=== PATIENT | female | born 1980 | race Caucasian/White ===

== ENCOUNTER 2023-01-21 06:22 | Emergency (ER) | payer OTHER, SELFPAY ==
[2023-01-21 06:32] VITALS: BP 127/88; PULSE 78; RESP 18; TEMP 36.7; O2SAT 96; BMI 33.9
--- NOTE | 2023-01-21 07:07 | ED.GENADULT ---
HPI - General Adult General Chief complaint: Abdominal Pain Stated complaint: abdominal pain, bloody stool Time Seen by Provider: 01/21/23 06:23 Source: patient Mode of arrival: ambulatory Limitations: no limitations History of Present Illness HPI narrative: 42-year-old female with no anticoagulant use presents the emergency department with rectal bleeding. She reports that this started overnight. It is bright red, slow trickle in nature, no clots. It is accompanied by some abdominal cramping and loose stools. She had been constipated for a couple of days and did take a stool softener yesterday. Initially the blood was just with wiping but now she notice is that it is mixed in with the diarrhea and is happening with each bowel movement which is a few times over night. As stated there is no severe bleeding, there is no continuous leakage of blood. There was no injury, trauma, tenderness to the rectum. She has some mild left lower quadrant discomfort but no severe pain. She has not taken any medication to help with her symptoms. She has had no recent changes to her medications, she last used her migraine medication which is a triptan 48 hours ago, uncomplicated. She did take some ibuprofen a couple of days ago but no other aspirin or other anticoagulants. Her last colonoscopy was 1 year ago and she had some sessile serrated polyps by her description. She does have a family history of ulcerative colitis. There has been no fever, no unexpected weight loss, no diffuse abdominal pain, vomiting or other worrisome symptoms. Past medical history notable for migraines, depression. Home meds are fluoxetine, amitriptyline, p.r.n. rizatriptan and control. She is a nonsmoker. Family history noted above. ROS notable for the GI symptoms as above only, otherwise denies times 12 systems. Related Data Home Medications Medication Instructions Recorded Confirmed amitriptyline 10 mg tablet 10 mg PO QPM 01/21/23 01/21/23 cyclobenzaprine 5 mg tablet 5 mg PO 3XD PRN muscle spasm 01/21/23 01/21/23 fluoxetine 20 mg capsule 20 mg PO DAILY 01/21/23 01/21/23 norgestimate 0.25 mg-ethinyl 1 tab PO DAILY 01/21/23 01/21/23 estradiol 35 mcg tablet (Estarylla) Allergies Allergy/AdvReac Type Severity Reaction Status Date / Time No Known Drug Allergies Allergy Verified 01/21/23 06:36 [facility] Medical History Anxiety ?F41.9 - Anxiety disorder, unspecified (ICD-10) Migraine ?G43.909 - Migraine, unspecified, not intractable, without status migrainosus (ICD-10) Surgical History No significant past surgical history Social History Smoking Status: Never smoker Second hand tobacco smoke exposure: No How often do you have a drink containing alcohol: never How often do you have six or more drinks on one occasion: Never AUDIT-C Alcohol total score: 0 Non-prescribed substance use: denies use Exam Const: Vital Signs, click to edit/add: Vital Signs - 24 hr 01/21/23 06:32 01/21/23 07:14 Temperature 98.1 F 98.2 F Pulse Rate [Right Pulse Oximeter] 78 72 Respiratory Rate 18 18 Blood Pressure [Ri ght Upper Arm] 127/88 123/84 Pulse Oximetry 96 96 Oxygen Delivery Me thod Room Air Room Air Documenting provider has reviewed patient's vital signs: yes Common normals: no apparent distress General appearance: cooperative, comfortable and well kempt Other: Appears well nourished, well hydrated, nontoxic. HENMT: Common normals: normocephalic Head and scalp: normocephalic Mouth: oral and palatal mucosa normal Throat: posterior oropharynx normal Eye: Common normals: conjunctivae normal General eye: normal appearance of both eyes Conjunctiva: conjunctiva(e) normal Resp: Common normals: normal respiratory effort, no use of accessory muscles and clear to auscultation bilaterally Effort & inspection: able to speak in complete sentences Auscultation: clear to auscultation bilaterally Cardio: Common normals: regular rate, regular rhythm, S1 normal heart sound, S2 normal heart sound and no murmurs Rate: regular rate Rhythm: regular rhythm Heart sounds: S1 normal and S2 normal GI: Common normals: Normal to inspection, nondistended, normoactive bowel sounds present, soft to palpation, no hepatosplenomegaly and no masses Palpation: soft and no hepatosplenomegaly Other: Mild tenderness to the left lower quadrant, certainly no rebound tenderness or guarding. : Other: Rectal exam showing normal external rectum, no obvious hemorrhoids. Anoscope exam revealing a tiny scant amount of dark red blood mixed with loose stool at the very top part of the rectal vault, IP hemoccult sample is taken and is expectedly positive. There is no signs of fissure, polyp or trauma to the rectum. Extremity: Common normals: normal to inspection and no pedal edema Neuro: Motor exam: no movement abnormalities noted Psych: Appearance: well kempt Attitude: engaged Activity/motor behavior: appropriate eye contact Insight: insight good Judgement: judgment good Skin: Common normals: no rashes or lesions noted General skin exam: no rashes or lesions noted Course Course Hospital Course: Differential diagnosis: Most likely this is a diverticular bleed based on presentation. Cannot exclude infectious colitis, inflammatory colitis, polyp, tumor, av malformation or other etiology. Rate of the bleeding in overall presentation suggests venous etiology. There are no signs of acute pathological bleeding at this time. I recommended basic labs to check hemoglobin, platelet count, liver enzymes, inflammatory markers. If she is able to provide an appropriate bloody diarrhea sample, we would test this for infectious pathogens, ova and parasite. Counseled that CT scans rarely are helpful in these instances. There are no indications for an emergent colonoscopy. She will need a follow-up colonoscopy in 4-6 weeks. This can be arranged outpatient. She should expect the bleeding to last 24-48 hours. Recommended gentle diet, lots of fluids and rest today. Alarm symptoms that would warrant ED presentation reviewed with patient as indications to come back to the ED. she verbalizes understanding and agreement. Awaiting labs but expecting discharge to home if there are no signs of persistent bleeding. Reevaluation(s) Time of Reevaluation #1: 07:58 Reevaluation #1: Reassessed patient. Feeling stable. Did try to have a bowel movement and there is only a scant amount of dark red blood again but no significant stool sample otherwise. She has not had any return of the cramping and diarrhea while she has been here. No fevers, tachycardia hypotension, worsening of any kind. I still strongly suspect that this is a diverticular bleed. Discussed my rationale for not performing imaging. Stressed the importance for follow-up colonoscopy in a few weeks Ancef parameters for when to worry in the setting of this bleeding. All questions were answered, written instructions provided. She verbalizes understanding and agreement. Vital Signs Vital signs: Initial Vital Signs Temperature 98.1 F 01/21/23 06:32 Temperature Source Temporal Artery Scan 01/21/23 06:32 Pulse Rate 78 01/21/23 06:32 Respiratory Rate 18 01/21/23 06:32 Blood Pressure 127/88 01/21/23 06:32 Blood Pressure Mean 101 01/21/23 06:32 Blood Pressure Position Sitting 01/21/23 06:32 Pulse Oximetry 96 01/21/23 06:32 Oxygen Delivery Method Room Air 01/21/23 06:32 Vital Signs Temperature 98.1 F 01/21/23 06:32 Pulse Rate 78 01/21/23 06:32 Respiratory Rate 18 01/21/23 06:32 Blood Pressure 127/88 01/21/23 06:32 Pulse Oximetry 96 01/21/23 06:32 Oxygen Delivery Method Room Air 01/21/23 06:32 Temperature 98.2 F 01/21/23 07:14 Pulse Rate 72 01/21/23 07:14 Respiratory Rate 18 01/21/23 07:14 Blood Pressure 123/84 01/21/23 07:14 Pulse Oximetry 96 01/21/23 07:14 Oxygen Delivery Method Room Air 01/21/23 07:14 Medical Decision Making Lab Data Lab results reviewed: Yes I reviewed the patient's lab results Lab results narrative: Mild elevation of CRP, no significant leukocytosis. Normal liver enzymes, electrolytes and kidney function. Overall fairly reassuring. Labs: Lab Results 01/21/23 Range/Units 07:20 WBC 10.27 (4.50-11.00) K/uL RBC 4.73 (4.00-5.20) m/uL Hgb 14.4 (12.0-16.0) gm/dL Hct 42.4 (33.0-51.0) % MCV 90 (80-100) fL MCH 30 (26-34) pg MCHC 34 (32-36) gm/dL RDW Coeff of Carmina 12.6 (11.5-15.5) % Plt Count 300 (140-440) K/uL Neut % (Auto) 76.3 H (42.0-72.0) % Lymph % (Auto) 16.3 L (20-44) % Johnson % (Auto) 5.6 (0.0-11.0) % Eos % (Auto) 1.5 (0.0-7.0) % Baso % (Auto) 0.3 (0.0-3.0) % Neut # (Auto) 7.80 H (1.7-7.0) K/uL Lymph # (Auto) 1.70 (0.90-2.90) K/uL Johnson # (Auto) 0.60 (0.00-0.90) K/UL Eos # (Auto) 0.15 (0.00-0.50) K/uL Baso # (Auto) 0.03 (0.00-0.30) K/uL Abs Immat Gran (auto) 0.00 (0.00-0.30) K/uL Imm/Tot Granulo (auto) 0.0 % INR 0.97 (0.91-1.10) Sodium 139 (135-149) mmol/L Potassium 4.0 (3.6-5.1) mmol/L Chloride 106 (96-114) mmol/L Carbon Dioxide 27 (20-32) mmol/L Anion Gap 6 L (7-15) mEq/L BUN 10 (5-24) mg/dL Creatinine 0.7 (0.5-1.5) mg/dL Estimated Creat Clear 99.01 Estimated GFR 111 ml/min Glucose 100 (60-115) mg/dL Calcium 8.6 (8.4-10.6) mg/dL Total Bilirubin 0.9 (0.1-1.5) mg/dL AST 28 (12-35) U/L ALT 24 (4-35) U/L Alkaline Phosphatase 70 (40-150) U/L C-Reactive Protein 2.8 H (0.5-1.0) mg/dL Total Protein 7.2 (6.0-8.3) g/dL Albumin 4.0 (3.3-5.0) g/dL Discharge Plan Discharge Clinical Impression: Painless rectal bleeding Patient Disposition: Home w/ Parent or Adult Condition: Stable Instructions: Gastrointestinal Bleeding (ED) Additional Instructions: Based on her symptoms and presentation, the reason for her bleeding is most likely a diverticular bleed. This is similar to a hemorrhoid but in the lower part of the colon, often where there is an area of a weak spot in the colon wall known as diverticulosis. This is different than diverticulitis which is an infection. There are no features of infection based on her presentation, exam or blood work today. Most of the time, the bleeding will stop within 24-48 hours. It tends to be dark red, often mixed with the stool. Rarely there can be small blood clots. Persistent strong bleeding and or large blood clots would warrant return to the emergency department. Try to avoid aspirin and NSAIDs like ibuprofen for the next couple of days but it is okay to take Tylenol if needed. Drink lots of fluids and rest. It was light, bland diet for the next [address] scan does not typically show the sources for GI bleeding. This is why do not recommend performing 1 today. I do recommend that you schedule a follow-up colonoscopy in 4-6 weeks to make sure that there is no other reason for the bleeding such as a polyp. Your primary care doctor can make a referral for this. I would also like for you to see her primary care doctor in 2 days to recheck your hemoglobin and ensure that the bleeding is not serious. Activity Level: Activity as Tolerated Discharge Diet: Regular Prescriptions: No Action norgestimate-ethinyl estradiol [Estarylla] 0.25-35 mg-mcg tablet 1 tab PO DAILY amitriptyline 10 mg tablet 10 mg PO QPM fluoxetine 20 mg capsule 20 mg PO DAILY cyclobenzaprine 5 mg tablet 5 mg PO 3XD PRN (Reason: muscle spasm) Stand Alone Forms: [employer] Info Instructions
[2023-01-21 07:14] VITALS: BP 123/84; PULSE 72; RESP 18; TEMP 36.8; O2SAT 96
[2023-01-21 07:27] LABS: Basophils Absolute Auto 0.03 K/uL (0.00-0.30); Basophils Percent Auto 0.3 % (0.0-3.0); Eosinophils Absolute Auto 0.15 K/uL (0.00-0.50); Eosinophils Percent Auto 1.5 % (0.0-7.0); Hematocrit 42.4 % (33.0-51.0); Hemoglobin* 14.4 gm/dL (12.0-16.0); Lymphocytes Percent Auto 16.3 % (20-44); Mean Corpuscular HGB Conc 34 gm/dL (32-36); Mean Corpuscular Hemoglobin 30 pg (26-34); Mean Corpuscular Volume 90 fL (80-100); Monocytes Percent Auto 5.6 % (0.0-11.0); Neutrophils Percent Auto 76.3 % (42.0-72.0); Platelet Count* 300 K/uL (140-440); RDW Coefficient of Variation % 12.6 % (11.5-15.5); Red Blood Count 4.73 m/uL (4.00-5.20); White Blood Count* 10.27 K/uL (4.50-11.00)
[2023-01-21 07:31] LABS: Slide Review Reflex No
--- NOTE | 2023-01-21 07:39 | ED.NURSE ---
was able to provide minimal amount of stool for occult blood and o&p. this was noted to have mucus and blood. specimen was not large enough for culture. is steady on feet.
[2023-01-21 07:41] LABS: Chloride* 106 mmol/L (96-114); Sodium* 139 mmol/L (135-149)
[2023-01-21 07:42] LABS: INR 0.97 (0.91-1.10); Prothrombin Time 13.5 Seconds
[2023-01-21 07:43] LABS: Creatinine* 0.7 mg/dL (0.5-1.5); Est. Creatinine Clearance* 99.01; Estimated Glomerular Filt Rate 111 ml/min
[2023-01-21 07:44] LABS: Alanine Aminotransferase* 24 U/L (4-35); Alkaline Phosphatase* 70 U/L (40-150); Anion Gap 6 mEq/L (7-15); Aspartate Amino Transferase* 28 U/L (12-35); Bilirubin Total* 0.9 mg/dL (0.1-1.5); Blood Urea Nitrogen* 10 mg/dL (5-24); Carbon Dioxide* 27 mmol/L (20-32); Total Protein* 7.2 g/dL (6.0-8.3)
[2023-01-21 07:45] LABS: Calcium* 8.6 mg/dL (8.4-10.6); Glucose* 100 mg/dL (60-115)
[2023-01-21 07:47] LABS: C Reactive Protein* 2.8 mg/dL (0.5-1.0)
[2023-01-21 08:06] LABS: Fecal Occult Blood* Positive (Negative)
[2023-01-27 00:14] LABS: Ova and Parasite, Fecal Negative (Negative)
== END 2023-01-21 08:10 | disposition home or self-care (01) ==
PROVIDERS: Emergency Provider Family Medicine
DX: K62.5 Hemorrhage of anus and rectum (principal)
CPT/HCPCS: 36415; 80053; 82270; 85025; 85610; 86140; 87045; 87046; 87177; 87209; 87427; 99283; 99284

== ENCOUNTER 2024-07-09 14:30 | Emergency (ER) | payer BC, SELFPAY ==
[2024-07-09 14:33] VITALS: BP 121/79; PULSE 98; RESP 16; TEMP 36.6; O2SAT 97; BMI 30.5
--- OUTSIDE RECORDS SUMMARY | 2024-07-09 14:33 | XMS_ITS | Clinical Summary ---
Author Organization [facility] Address [place], [place] [address] Care Team Providers Care Inspector Motor Vehicles Name Role Phone Jacquie Rankin Primary Care Provider [phone] Allergies No known active allergies Medications VIT #[id number] ORAL One tablet once a day 01/26/20 09 Active HYDROCORTISONE ACETATE 25 MG RECTAL SUPPOSITORY Two times a day Active ACETAMINOPHEN 325 MG TAB Take 1-2 325mg tablets by mouth every 4 hours for mild pain as needed. 1 0 02/02/20 09 Active IBUPROFEN 200 MG CAP Take 1-3 200mg tablets by mouth every 6 hours for uterine cramping as needed 1 0 02/02/20 09 Active [id number]-BO-LGF-FE -FA TAB Take 1 tablet by mouth each day 1 0 02/02/20 09 Active acetaminophen-code ine, 300-30 mg, (TYLENOL #3) 300-30 mg tablet take 1 tablet by oral route every 6 hours as needed 16 0 05/03/20 09 Active methylPREDNISolone (MEDROL DOSEPAK) 4 mg tablet Take by mouth as instructed per packaging. 21 tablet 0 01/06/20 13 Active cyclobenzaprine (FLEXERIL) 10 mg tablet Take 1 tablet by mouth 3 times daily. 15 tablet 0 01/06/20 13 Active oxyCODONE-acetamin ophen, 5-325 mg, (PERCOCET) per tablet Take 1 tablet by mouth every 4 hours if needed for Pain. Max acetaminophen dose: 4000mg in 24 hrs. 15 tablet 0 01/06/20 13 Active albuterol HFA 90 mcg/actuation inhalerIndications :Influenza due to unidentified influenza virus with other respiratory manifestations Inhale 1-2 Puffs by mouth every 4 hours if needed for wheezing 18 g 1 9 9:53 AM INDUSTRIAL TECHNICIAN 07/24/19 19 Active Active Problems Problem Noted Date Diagnosed Date Normal delivery 01/31/2009 Resolved Problems Problem Noted Date Diagnosed Date Resolved Date Supervision of other normal 01/31/2009 01/31/2009 Social History Tobacco Use Types Packs/Day Years Used Date Smoking Tobacco: Never Assessed Alcohol Use Standard Drinks/Week Comments No 0 (1 standard drink = 0.6 oz pur e alcohol) Comments No Sex and Gender Information Value Date Recorded Sex Assigned at Not on file Legal Sex Female 7:33 AM INDUSTRIAL TECHNICIAN Gender Identity Not on file Sexual Orientation Not on file Obstetrics History Para Term AB IAB SAB Ectopic Multiple Livin g Live Births 2 1 1 0 0 0 0 0 0 1 Date Outcome GA Total Labor Labor/2nd/3rd Weight Sex Type Anes PTL Judy A1 A5 Name Clin Term Comments:System Genera valentín. Please review and update details. Last Filed Vital Signs Vital Sign Reading Time Taken Comments Blood Pressure 148/88 03/01/2016 4:09 PM CDT Pulse 78 03/01/2016 4:09 PM CDT Temperature 36.8 C (98.2 F) 03/01/2016 4:09 PM CDT Respiratory Rate 18 03/01/2016 4:09 PM CDT Oxygen Saturation 99% 03/01/2016 4:09 PM CDT Inhaled Oxygen Concentration - - Weight 86.2 kg (190 lb) 03/01/2016 4:09 PM CDT Height 170.2 cm (5' 7) 03/01/2016 4:09 PM CDT Body Mass Index 29.76 03/01/2016 4:09 PM CDT Plan of Treatment Health Maintenance Due Date Last Done Comments Tdap 02/21/1992 Depression screening for age 12+ 1993 HIV for age 15-65 02/21/1996 BMI (ht and wt on same day) for age 18+ 1999 Hepatitis C screening for age 18-79 1999 Tetanus booster 2001 Pap test for age 21-65 2002 COVID-19 vaccine series ( season) 2024 04/02/2022, 04/06/2021, 08/15/2020, Additional history exists Influenza for age 9-49 01/24/2024 Pneumococcal series for age 6-49 Aged Out No longer eligible based on patient's age to complete this topic Advance Directives * Full Code (Latest Code Status on File) Date Activated Date Inactivated Comments 01/31/2009 3:20 AM 02/01/2009 1:41 PM * Full Code Date Activated Date Inactivated Comments 01/30/2009 8:03 PM 01/31/2009 3:20 AM * Full Code Date Activated Date Inactivated Comments 01/26/2009 8:25 PM 01/26/2009 11:28 PM Care Teams Inspector Motor Vehicles Relationship Specialty Start Date End Date Jacquie Rankin DO [address] [place] [address] PCP - General Family Practice 12/03/21
--- OUTSIDE RECORDS SUMMARY | 2024-07-09 14:33 | XMS_ITS | Encounter Summary ---
Author Organization [facility] Address [address] [place] [address] Care Team Providers Care Electrolytic De Scaler Name Role Phone Jacquie Rankin DO Primary Care Provider [phone] Encounter Details Date Type Department Care Team (Late st Contact Info) Description 05/26/2024 12:20 PM SPEECH PROFESSOR Telemedicine Virtual Urgent Care [address] [place] [address] Faviola Muñiz, BREAKFAST ATTENDANT, SR. SOCIAL MEDIA & MOBILE MANAGER [address] [place], [place] [id number] Acute midline low back pain without sciatica (Primary Dx) Social History Tobacco Use Types Packs/Day Years Used Date Smoking Tobacco: Former Cigarettes 0.3 4 1 07/02/2001 - 05/01/2006 Smokeless Tobacco: Never Comments:Quit smoking: Alcohol Use Standard Drinks/Week Comments Not Currently 0 (1 standard drink = 0.6 oz pur e alcohol) occasionally PHQ-2 Answer Date Recorded PHQ-2 Score 3 04/12/2024 Comments No Sex and Gender Information Value Date Recorded Sex Assigned at Not on file Legal Sex Female 11:55 PM CDT Gender Identity Not on file Sexual Orientation Not on file 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 Push fluids when you take this medicine and do not operate heavy machinery until you know how you feel when taking it Use heat, soaking in a tub with Epsom salts, gentle stretching as indicated in the teaching handouts, and other home cares as we discussed to help alleviate symptoms If you are not continually improving over the next several days, have any new or worsening symptoms, or you are not well in another week's time, please follow-up with either your primary care provider or with [facility] through the same-day clinic or urgent care as we discussed. Call 911/go to the ER if you develop a high fever that will not come down, severe pain, weakness inyour extremities, numbness or tingling in your perianal area, incontinence of stool or urine, or other symptoms of significant concern to you or as indicated in teaching handouts This note was created using a AI assisted electronic dictation device. There may be unintended grammatical, spelling, or word errors because of this. CH PROFESSOR CH PROFESSOR * Attachments The following attachments cannot be sent through Care Everywhere. * Low Back Pain: General Info (Frisian) * EXERCISES FOR BACK PAIN (LATVIAN) documented in this encounter Progress Notes * Faviola Muñiz APRN, CNP - 05/26/2024 12:20 PM CST Rooming Notes: This visit was completed as a virtual video visit using a synchronous, two-way, audio-video technology platform. All issues as documented above were discussed and addressed. Due to the nature of an audio-video modality, the only components of a physical exam that could be done are the elements supported by direct visual observation. If it was felt that the patient should be evaluated in clinic liliana an emergency room setting, then this was discussed with the patient. Patient identification was verified at the start of the visit, including the patient's name, date of , and physical location in case of emergency. Patient was in her work. Provider was in home office. Patient verbally consented to visit and demonstrated an understanding of the limitations of this virtual visit. Subjective: Very pleasant 44-year-old female presents with sudden onset of midline low back pain and tenderness. She was laying in bed and felt a little bit of low back discomfort and then twisted out of bed andhad significant midline low back pain from that time forward. She does sleep on a memory foam mattress. No history of injuries in the low back or pain like this before. She is not having any pain or numbness or tingling in her buttocks or lower extremities/legs. She took some ibuprofen and use heatand it seems to be helping. Movement seems to be helping. She is just very stiff and sore and wondering what she can do about this. Denies fever, chills, body aches or pains, cough, shortness of breath, chest pain, nausea, vomiting, diarrhea, constipation, changes in p.o. intake or urinary output, flank pain or tenderness, abdominal pain or tenderness, and any and all other complaints. Objective: Vitals Signs: There were no vitals taken for this visit. Awake and alert Nontoxic appearance Pleasant affect Skin color appropriate for race Low back: No bruising, no deformity appreciated or visualized, no paraspinal muscle spasms appreciated visually, patient states she is tender across the midline lumbar area and the pain feels deep inside there Negative straight leg raise (modified sitting) bilaterally Moves all extremities within normal limits MDM/Assessment: Patient with acute midline low back pain without sciatica. She had minimal response from ibuprofen.Will place her on a Medrol Dosepak and provide with some cyclobenzaprine for bedtime and then discussed symptom management at home and normal course of illness. We discussed follow-ups as needed. We discussed red flag/emergency symptoms. I answered all questions and concerns. Patient verbalized understanding of plan and discharge instructions and was agreeable to both. They had no further questions, comments, or concerns by the end of their visit. Visit Diagnoses: 1. Acute midline low back pain without sciatica Plan: Follow teaching handouts Take medrol dosepack as directed and inflammation, make sure you have something in your stomach when you take this You may use [id number] acetaminophen as directed on the bottles/packages for any pain unrelieved by Medrol Dosepak Use cyclobenzaprine as needed for pain that keeps you awake, or pain unrelieved by Medrol and acetaminophen. Push fluids when you take this medicine and do not operate heavy machinery until you know how you feel when taking it Use heat, soaking in a tub with Epsom salts, gentle stretching as indicated in the teaching handouts, and other home cares as we discussed to help alleviate symptoms If you are not continually improving over the next several days, have any new or worsening symptoms, or you are not well in another week's time, please follow-up with either your primary care provider or with [facility] through the same-day clinic or urgent care as we discussed. Call 911/go to the ER if you develop a high fever that will not come down, severe pain, weakness inyour extremities, numbness or tingling in your perianal area, incontinence of stool or urine, or other symptoms of significant concern to you or as indicated in teaching handouts This note was created using a AI assisted electronic dictation device. There may be unintended grammatical, spelling, or word errors because of this. CH PROFESSOR documented in this encounter Plan of Treatment Upcoming Encounters Date Type Department Care Team (Late st Contact Info) Description 07/20/2024 2:15 PM SPEECH PROFESSOR [facility]ointment [facility] [address] [facility] [address] [id number] Shane Pedro Jr., MD [address] [place], [place] [id number] 09/14/2024 11:30 AM CDT Telemedicine [facility] [address] [facility] [address] [place], [place] [id number] Viktoriya Aviles PA-C [address] [place], [place] [phone] 09/22/2024 2:30 PM CDT Appointment [facility] [address] [place] [id number] Cari Duarte MD [address] [facility] [address] [place] [phone] 03/29/2025 3:30 PM SPEECH PROFESSOR Appointment [facility] [address] [place] [id number] Cari Duarte MD [address] [facility] [address] [place] [phone] documented as of this encounter Visit Diagnoses Diagnosis Acute midline low back pain without sciatica- Primary documented in this encounter Care Teams Electrolytic De Scaler Relationship Specialty Start Date End Date Jacquie Rankin DO [address] [place] [address] PCP - General 04/18/14 documented as of this encounter
--- OUTSIDE RECORDS SUMMARY | 2024-07-09 14:33 | XMS_ITS | Encounter Summary ---
Author Organization [facility] Address [address] [place] [address] Care Team Providers Care Etcher Hand Name Role Phone Jacquie Rankin DO Primary Care Provider [phone] Reason for Visit * Reason Comments Prior Authorization Request Botox questi ons Encounter Details Date Type Department Care Team (Late st Contact Info) Description 06/01/2024 Telephone [facility] Neurology [address] [place], [place] [id number] Cari Duarte MD [address] [facility] [address] [place] [address] Prior Authorization Request (Botox questions) Social History Tobacco Use Types Packs/Day Years [...] on file documented as of this encounter Nursing Notes * Rosa Oneill - 06/01/2024 2:08 PM CST Spoke with patient to obtain information so authorization request can be submitted to her insurancefor continuation of Botox. Patient denies having any disorders that may contribute to swallowing, breathing or respiratory difficulty. Patient denies having any hypersensitivity to Botulinum toxin products. Patient denies any active infection at the proposed injection sites. Patient confirms she does continue to utilize other migraine prevention strategies. Patient confirms that Botox does provide an improvement in her function. Patient confirms that there is a significant decrease in the number, frequency, severity or duration of her headaches with Botox. Patient does received Botox injection through her business proposal rep for excessive sweating in her armpits (but not on concurrent treatment with another Botulinum toxin product for treatment of her headaches). Patient confirms she is tolerating Botox with minimal to no side effects. T DOCTOR documented in this encounter Plan of Treatment Upcoming Encounters Date Type Department Care Team (Late st Contact Info) Description 07/20/2024 2:15 PM HEART DOCTOR Appointment [facility] [address] [facility] [address] [place] [address] Shane Pedro Jr., MD [address] [place], [place] [address] 09/14/2024 11:30 AM CDT [facility] [address] [facility] [address] [place], [place] [address] Viktoriya Aviles PA-C [address] [place], [place] [address] 09/22/2024 2:30 PM CDT Appointment [facility] [address] Neurology [address] [facility] [place], [place] [address] Cari Duarte MD [address] [facility] [address] [place] [phone] 03/29/2025 3:30 PM HEART DOCTOR Appointment [facility] [address] Neurology [address] [place], [place] [address] Cari Duarte MD [address] [facility] [address] [place] [address] documented as of this encounter Visit Diagnoses Not on filedocumented in this encounter Care Teams Etcher Hand Relationship Specialty Start Date End Date Jacquie Rankin DO [address] [place] [address] PCP - General 04/18/14 documented as of this encounter
--- OUTSIDE RECORDS SUMMARY | 2024-07-09 14:33 | XMS_ITS | Encounter Summary ---
Author Organization [facility] Address [address] [place] [address] Care Team Providers Care Brand Ambassador Promotional Model Name Role Phone Jacquie Rankin DO Primary Care Provider [phone] Reason for Visit * Reason Comments Prior Authorization For Medication ONABO TULINUMTOXINA (BOTOX) 100 UNITS INJECTION Encounter Details Date Type Department Care Team (Late st Contact Info) Description 06/08/2024 Telephone [facility] [address] [facility] [address] [place] [address] Shane Pedro Jr., MD [address] [place] [address] Prior Authorization For Medication (ONABOTULINUMTOXINA (BOTOX) 100 UNITS INJECTION ) Social History Tobacco Use Types Packs/Day Years [...] as of this encounter Nursing Notes * Jodi Fitzgerald RN - 06/14/2024 8:58 AM CST Approval sent to scan doc. NIC PREPARATION ANALYST * Jacquie Burnham LPN - 06/13/2024 9:33 AM CST Images from the original note were not included. Received fax from [employer] [place] with coverage determination for medical Botox prior authorization. Screenshot of letter below. 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 Coverage dates: 06/09/2024 - 12/06/2024 Case tracking # [id number] Case authorization # [id number] Provider NPI # [id number] BS ID # [id number] Called [facility] Utilization Management department ph. and spoke to outside dealer sales representative [facility] patient benefits for medical Botox injection are as follows: Coverage for Botox: Patient is responsible for a $20 co-pay until individual or family srx-ca-lzgiup max is met. Deductible does not apply. Once met, coverage is 100% and co-pay no longer applies. Out of pocket max: Individual ($2500) Family ($90808) Per outside dealer sales representative, clinic MAY buy and bill/supply medication in-house. Clinic is NOT required to use a contracted specialty pharmacy. Call reference #: [id number] Next steps for care team: Please contact patient and inform coverage has been approved. Next appt: 07/20/2024 Order Botox (clinic supplied) prior to appointment. Copy of approval letter was routed to care team [employer] folder. Please print and forward to Scan Doc. Jacquie Davison LPN 06/13/24 10:26 am NIC PREPARATION ANALYST * Jacquie Burnham LPN - 06/09/2024 4:28 PM CST Sorry, I'm not sure why that was routed to you first. I will route encounter back to care team oncecoverage determination letter is received and benefits and coverage has been verified early next week. Thank you! Jacquie Davison LPN 06/09/24 4:30 PM NIC PREPARATION ANALYST * Guerda Mcdaniel MA - 06/09/2024 2:31 PM CST Reason for call: Prior authorization Specialty Pharmacy: [facility] Name & Phone Number of Caller: [facility] [phone] Callback Required? Yes Was the patient & pharmacy notified of the approval or denial? NA Case #: [id number] How long is PA approved for? 06/09/24 Other information: Patient has been approved for botox 200 units times 3 total of 600 units for 3 doses. Routing: Please route to patient's care team pool. NIC PREPARATION ANALYST * Jacquie Burnham LPN - 06/09/2024 10:45 AM CST Call from Luly Romero with [employer] (previously known as [email or web address]) third adminstrator for [employer] of [place]. Caller had additional questions as part of coverage review for medical Botox. All questions were answered. Coverage pending review. Jacquie Davison LPN 06/09/24 10:54 AM NIC PREPARATION ANALYST * Jacquie Burnham LPN - 06/08/2024 9:34 AM CST Images from the original note were not included. 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 ONABOTULINUMTOXINA (BOTOX) 100 UNITS INJECTION: 100 units into the left and right axillae for atotal of 200 units every 3 months. Clinic bret, Codie. PA for continuation of therapy for medical Botox (J0585 & [id number]) for axillary hyperhidrosis wasinitiated via [email or web address] portal (3rd green party sales and marketing administrator for [facility] of [place]). Clinical documentation was included with request. Screenshot of portal submission below. Coverage pending review Case tracking # [id number] Information included in PA request: Name of drug: ONABOTULINUMTOXINA (BOTOX) 100 UNITS INJECTION ICD-10 code(s): 79023 JCODE: J0585 CPT Code(s): L74.510 Area(s) to be treated: left and right axilla Frequency of injections: every 3 months Total # of units per inj site: 100 Total # of units per tx (for all injection sites): 200 Clinic supplied/Codie Davison LPN 06/08/24 9:34 AM NIC PREPARATION ANALYST documented in this encounter Plan of Treatment Upcoming Encounters Date Type Department Care Team (Late st Contact Info) Description 07/20/2024 2:15 PM ORGANIC PREPARATION ANALYST Appointment [facility] [address] [facility] [address] [place] [address] Shane Pedro Jr., MD [address] [place] [address] 09/14/2024 11:30 AM CDT [facility] [address] [facility] [address] [place], [place] [address] Viktoriya Aviles PA-C [address] [place] [address] 09/22/2024 2:30 PM CDT Appointment [facility] [address] Neurology [address] [place] [address] Cari Duarte MD [address] [facility] [address] [place] [phone] 03/29/2025 3:30 PM ORGANIC PREPARATION ANALYST Appointment [facility] Neurology [address] [place] [address] Cari Duarte MD [address] [facility] [address] [place] [phone] documented as of this encounter Visit Diagnoses Not on filedocumented in this encounter Care Teams Brand Ambassador Promotional Model Relationship Specialty Start Date End Date Jacquie Rankin DO [address] [place], [place] [address] PCP - General 04/18/14 documented as of this encounter
--- OUTSIDE RECORDS SUMMARY | 2024-07-09 14:33 | XMS_ITS | Clinical Summary ---
Author Organization [facility] Address [address] [place] [address] Care Team Providers Care Crayon Molding Machine Operator Name Role Phone Jacquie Rankin DO Primary Care Provider [phone] Source Comments You are receiving this document as you are listed as the primary care provider,follow-up provider, or the patient has been referred to you for consultation.This is in compliance with the Medicare and[facility] EHR Incentive Program,which states Providers who transition their patient to another setting of careor provider of care or refers their patient to another provider of care shouldprovide summary care record for each transition of care or referral. [email or web address] Allergies No known active allergies Medications * This document contains information received from the source organization and may not represent a complete record from that organization. famotidine (PEPCID) 20 MG tablet Take 1 Tablet by mouth two times a day. 60 Tablet 2 021 Active Additional Information Patient taking differently:20 mg OralHS, Reported on 09/08/2023 norgestimate-eth estradiol (ORTHO-CYCLEN) 0.25-35 MG-MCG tabletIndication s:Menorrhagia with regular cycle,General counseling for prescription of oral contraceptives Take 1 Tablet by mouth daily. Continuous use. Discard placebo pills. Disp. 4 packs (3 mo.) 112 Tablet 3 024 2024 Active tirzepatide-weig ht management (ZEPBOUND) 2.5 MG/0.5ML pen injectionIndicat ions:Obesity (BMI 35.0-39.9 without comorbidity) (HRC) Inject 2.5 mg subcutaneously one time weekly for 4 weeks 2 mL 024 Active tirzepatide-weig ht management (ZEPBOUND) 5 MG/0.5ML pen injection Inject 5 mg subcutaneously one time weekly for 4 weeks Do not start before May 12, 2024. 2 mL 5 024 Active ZOLMitriptan (ZOMIG) 5 MG nasal solutionIndicati ons:Migraine 1 spray on nostril onset of headache. May repeat in 2 hrs. Max 2 sprays/day, max use 9 days/month Indications: Migraine Headache 12 Each 3 024 Active cyclobenzaprine (FLEXERIL) 10 MG tabletIndication s:Acute midline low back pain without sciatica Take 1 Tablet (10 mg) by mouth two times daily as needed for Muscle Spasms (use mostly to help sleep at night if unable; do not operate heavy machinery; push fluids when taking). 10 Tablet 025 Active Onabotulinumtoxi nA (BOTOX IJ) Inject 150 Units intramuscularly every 12 weeks. 150 unit Injections [id number] in office by Dr. Duarte for migraine. Vials 100 unit [id number] exp 08/2026, and 50 unit [id number] exp 02/2026. Fridge neuro 1 Active ALPRAZolam (XANAX) 0.25 MG tabletIndication s:Situational anxiety ([facility]) Take 1 Tablet (0.25 mg) by mouth daily as needed for Anxiety. 5 Tablet 024 2024 Discontinued( Erroneous Entry/Duplica te/Other) rizatriptan (MAXALT-HYDRAULICS ENGINEER) 10 MG disintegrating tabletIndication s:Migraine without aura and without status migrainosus, not intractable 1 tablet at onset of typical migraine. May repeat 1 in 2 hours. Max 2 tablets/day. Max 9 days/month. 12 Tablet 7 024 2024 Discontinued( Erroneous Entry/Duplica te/Other) Onabotulinumtoxi nA (BOTOX IJ) Inject 150 Units intramuscularly every 12 weeks. 150 unit Injections [id number] in office by Dr. Duarte for migraine. Vials 100 unit [id number] exp 07/2026, and 50 unit [id number] exp 02/2026. Fridge neuro 1 2024 Discontinued methylPREDNISolo ne (MEDROL 21 TABLET DOSEPACK) 4 MG tabletIndication s:Acute midline low back pain without sciatica Follow package directions 21 Tablet 025 2024 Discontinued( Erroneous Entry/Duplica te/Other) Active Problems Problem Noted Date Diagnosed Date Binge-eating disorder, moderate 04/12/2024 Intractable chronic migraine without aura and without status migrainosus 09/08/2023 UARS (upper airway resistance syndrome) 02/01/20 22 Depression 11/16/2013 Generalized anxiety disorder 11/16/2013 Menorrhagia 07/13/2012 Resolved Problems Problem Noted Date Diagnosed Date Resolved Date Serrated adenoma of colon 12/31/2021 Overview (12/31/2021): Colonoscopy completed 12/2021. Repeat in 3 years (12/2024). Encounters * This document contains information received from the source organization and may not represent a complete record from that organization. Date Type Department Care Team Description 07/09/2024 Nurse Triage [facility] [address] [place] [address] Jacquie Rankin, DO Rectal Problems 06/29/2024 12:30 PM CRYSTAL ATTACHER Ancillary Procedure [facility] [address] [place] [address] 06/22/2024 2:30 PM CRYSTAL ATTACHER Procedure Visit [facility] [address] [place] [address] Cari Duarte MD BOTOX INJECTION 06/08/2024 Telephone [facility] [address] [facility], [facility] [address] [place], [place] [id number] Shane Pedro Jr., MD Prior Authorization For Medication (ONABOTULINUMTOXINA (BOTOX) 100 UNITS INJECTION ) 06/01/2024 Telephone [facility] [address] [place] [id number] Cari Duarte MD Prior Authorization Request (Botox questions) 05/26/2024 12:20 PM CRYSTAL ATTACHER Telemedicine [facility] [address] [place] [address] Faviola Muñiz, PHONOGRAPH MECHANIC, PRINCIPLE SOFTWARE ENGINEER Acute midline low back pain without sciatica (Primary Dx) 05/19/2024 Telephone [facility] [address] [place] [address] Cari Duarte MD Prior Authorization Request 05/11/2024 9:00 AM CRYSTAL ATTACHER E-Visit Specialty Center [facility] Neurology [address] [place] [phone] Cari Duarte MD Dx: Intractable chronic migraine without aura and without status migrainosus (Primary Dx) 04/12/2024 E-Visit [facility] [address] [place] [address] [address] [place] [address] Viktoriya Aviles PA-C Dx: Obesity (BMI 35.0-39.9 without comorbidity) (C) (Primary Dx) from Last 3 Months Immunizations Immunization Administration Dates Next Due Flu Vac Preserv Free (3+yrs) 03/23/2012,01/31/20,06/07/2008 H1n1 Miv Sanofi 3+ Yr (Injected) 03/30/2009 Influenza (Flucelvax) 02/14/2021 Influenza (Flucelvax), Preserv Free QIV 04/02/20,04/02/2022 Influenza (LAIV), Unspecified 02/22/2018 Influenza IIV4 (Quadrivalent) 0.5mL (11676) 03/25,03/05/2017 Influenza LAIV (Nasal, 2-49 yrs) 04/10/2010 Influenza LAIV3 2-49 years (Flumist) 02/25/2011 Influenza Vaccine Q/LAIV Int ranasal 2-49 yrs ([facility]) 03/09/2014 Influenza, Unspecified Formulation 03/08/2021 Moderna Monovalent 12+ 08/15/2020,07/20/2020 Pfizer Bivalent 12+ 04/02/2022 Pfizer COVID-19 12+ 04/02/2023 Pfizer Monovalent 12+ Purple Top 04/06/2021 TDAP (BOOSTRIX) 08/02/2009 Td (7+ yrs) 08/16/1997 Tdap 04/04/2020 Family History Medical History Relation Name Comments High Cholesterol Father Rogelio Katz Emphysema Maternal Grandfather Sudden Paternal Grandfather Stroke Paternal Grandmother Shelly Katz Brain Aneurysm Negative Family History Cancer, Breast Negative Family History Cancer, Ovary Negative Family History Heart Attack Negative Family History Heart Disease Negative Family History Migraines Negative Family History Relation Name Status Comments Father Rogelio Katz Alive Mother Alive Brother Alive Daughter Alive Maternal Grandfather Maternal Grandmother Paternal Grandfather Paternal Grandmother hSelly Katz Son Alive Social History Tobacco Use Types Packs/Day Years Used Date Smoking Tobacco: Former Cigarettes 0.3 4 1 07/02/2001 - 05/01/2006 Smokeless Tobacco: Never Tobacco Cessation:Counseling Given: Not Answered Comments:Quit smoking: Alcohol Use Standard Drinks/Week Comments [...] file Not on file Not on file Last Filed Vital Signs Vital Sign Reading Time Taken Comments Blood Pressure 122/79 03/23/2024 8:53 AM CDT Pulse 80 03/23/2024 8:53 AM CDT Temperature 36.4 C (97.5 F) 11/28/2021 3:30 PM CDT Respiratory Rate 14 09/08/2023 2:05 PM CDT Oxygen Saturation 97% 05/15/2023 1:15 PM CRYSTAL ATTACHER Inhaled Oxygen Concentration - - Weight 104.8 kg (231 lb) 03/23/2024 8:53 AM CDT Height 167.6 cm (5' 6) 03/23/2024 8:53 AM CDT Body Mass Index 37.28 03/23/2024 8:53 AM CDT Plan of Treatment Upcoming Encounters Date Type Department Care Team (Late st Contact Info) Description 07/20/2024 2:15 PM CRYSTAL ATTACHER Appointment [facility] [address] [facility] [address] [place] [address] Shane Pedro Jr., MD [address] [place], [place] [address] 09/14/2024 11:30 AM CDT Telemedicine [facility] [address] [place] [address] [address] [place], [place] [address] Viktoriya Aviles PA-C [address] [place], [place] [address] 09/22/2024 2:30 PM CDT Appointment [facility] [address] [place] [phone] Cari Duarte MD [address] [facility] [address] [place] [phone] 03/29/2025 3:30 PM CRYSTAL ATTACHER Appointment [facility] Neurology [address] [place] [phone] Cari Duarte MD [address] [facility] [address] [place] [phone] Health Maintenance Due Date Last Done Comments HepB (1) 02/21/2000 Adult Preventive Visit 08/01/2023 2, 04/04/2020, 02/11/2018, Additional history exists COVID-19 Vaccine ( season) 2024 04/02/2023, 04/02/2022, 04/06/2021, Additional history exists Influenza (#1) 2024 04/02/2023, 1101/2022, 03/08/2021, Additional history exists Cervical Cancer Screening 04/04/20252019, 08/23/2015, 06/08/2012, Additional history exists Mammogram 06/29/2025 06/29/2024, 07/3 05/2022, 10/03/2021 Diabetes Screening- (based on age and BMI) 04/01/2027 04/01/2024, 10/01/2022 DTaP/Tdap/Td (4 - Tdap) 04/04/2030 04/04/20 20, 08/02/2009, 08/02/2009 (Completed), Additional history exists Zoster/Shingles (1 of 2) 2031 Colonoscopy 05/15/2033 05/15/2023, 12/24/2021 HIV Screening (Preventive Services) Completed 06/07/2008 Hep C Screening (Preventive Services) Completed 10/01/2022 HPV Vaccine Aged Out No longer eligi ble based on patient's age to complete this topic HepA Aged Out No longer eligi ble based on patient's age to complete this topic Hib Aged Out No longer eligi ble based on patient's age to complete this topic IPV (Polio) Aged Out No longer eligi ble based on patient's age to complete this topic MCV4 Aged Out No longer eligi ble based on patient's age to complete this topic Meningococcal B Aged Out No longer el igible based on patient's age to complete this topic Pneumococcal Aged Out No longer eligi ble based on patient's age to complete this topic Procedures Procedure Name Priority Date/Time Associated Diagnosis Comments MM MAMMOGRAM SCREENING BILAT W 3D JAIME W CAD Routine 06/29/2024 12:45 PM CRYSTAL ATTACHER HGB A1C Routine 04/01/2024 7:58 AM CRYSTAL ATTACHER Screening for diabetes mellitus ENDOSCOPY, COLON, SCREENING/DIAGNOSTI C Routine 05/15/2023 11:30 AM CRYSTAL ATTACHER Blood per rectum HEPATITIS C ANTIBODY, WITH REFLEX Routine 10/01/2022 7:59 AM CDT Need for hepatitis C screening test PAP TEST Routine 04/04/2020 10:09 AM CRYSTAL ATTACHER Screening for malignant neoplasm of cervix HIV ANTIBODY Routine 06/07/2008 12:17 PM CRYSTAL ATTACHER from Last 3 Months or Most Recently Relevant to Health Maintenance Results * MM Mammogram Screening Bilat W 3D Jaime W CAD (06/29/2024 12:45 PM CRYSTAL ATTACHER) Anatomical Region Laterality Modality Breast Bilateral Mammography Impressions 06/29/2024 3:34 PM CRYSTAL ATTACHER : ACR BI-RADS Category 1: Negative RECOMMENDATION: Follow Up Imaging in 12 months - Bilateral The results and recommendations of this examination will be communicated to the patient. Narrative 06/29/2024 3:34 PM CRYSTAL ATTACHER MM MAMMOGRAM SCREENING BILAT W 3D JAIME W CAD performed on 06/29/24 FDA Accredited Facility: [place] [address] Compared to: 12/22/2022 MM Mammogram Screening Bilat W 3D Jaime W CAD and 10/03/2021 MM Mammogram Screening Bilat W 3D Jaime W CAD FINDINGS: Bilateral screening mammogram was performed with the assistance of Computer-Aided Detection and breast tomosynthesis. The breasts are heterogeneously dense, which may obscure small masses. There is no radiographic evidence of malignancy. Jacquie Rankin DO RAD ROSARIO Final Result * Hgb A1c (04/01/2024 7:58 AM CRYSTAL ATTACHER) Hemoglobin A1C 5.4 <=5.6 % 04/01/2024 9:08 PM CRYSTAL ATTACHER [facility] Estimated Average Glucose (Calc) 108 < 117 mg/dL 04/01/2024 9:08 PM CRYSTAL ATTACHER [facility] Comment:Estimated average gl ucose (eAG) converts A1c into glucose units (mg/dL) and estimates average glucose over the past approximately 3 months. The eAG reference interval (<117 mg/dL) corresponds to an A1c of <5.7%. Blood Venipuncture / Unknown 04/01/2024 7:58 AM CRYSTAL ATTACHER 04/01/2024 7:58 AM CRYSTAL ATTACHER us Viktoriya Aviles PA-C LAB_1 Final Result Performing Organization Address City/State/[facility] Co de Phone Number [facility] [address] * Endoscopy, colon, diagnostic (05/15/2023 11:30 AM CRYSTAL ATTACHER) Anatomical Region Laterality Modality Other 05/15/2023 11:3 0 AM CRYSTAL ATTACHER Narrative 05/15/2023 11:30 AM CRYSTAL ATTACHER Patient Name: Kavita Macias Procedure Date: 05/15/2023 11:30 AM Date of : 1980 Admit Type: Outpatient Age: 43 Gender: Female Note Status: Finalized Attending MD: Christiano Nelson , , Procedure: Colonoscopy Indications: Hematochezia; personal history of SSA; alternating BMs; no first degree family members with colon cancer Providers: Kathryn Polanco RN Referring MD: Mejia Martinez Medicines: Fentanyl 100 micrograms IV, Midazolam 4 mg IV Complications: No immediate complications. Procedure: After I obtained informed consent, the scope was passed under direct vision. Throughout the procedure, the patient's blood pressure, pulse, and oxygen saturations were monitored continuously. The [id number] was introduced through the anus and advanced to the terminal ileum. The colonoscopy was performed without difficulty. The patient tolerated the procedure well. The quality of the bowel preparation was good. The terminal ileum, ileocecal valve, appendiceal orifice, and rectum were photographed. Findings: The perianal and digital rectal examinations were normal. The terminal ileum appeared normal. A post polypectomy scar was found at the hepatic flexure. The scar tissue was healthy in appearance. Biopsies for histology were taken with a cold forceps from the entire colon for evaluation of microscopic colitis. Non-bleeding internal hemorrhoids were found during retroflexion. The hemorrhoids were small. The exam was otherwise without abnormality on direct and retroflexion views. Moderate Sedation: Moderate (conscious) sedation was administered by the nurse and supervised by the endoscopist. The following parameters were monitored: oxygen saturation, heart rate, blood pressure, and response to care. Total physician intraservice time was 16 minutes. Impression: - The examined portion of the ileum was normal. - Post-polypectomy scar at the hepatic flexure. - Non-bleeding internal hemorrhoids. - The examination was otherwise normal on direct and retroflexion views. - Biopsies were taken with a cold forceps from the entire colon for evaluation of microscopic colitis. Recommendation: - Discharge patient to home. - Patient has a contact number available for emergencies. The signs and symptoms of potential delayed complications were discussed with the patient. Return to normal activities tomorrow. Written discharge instructions were provided to the patient. - Resume previous diet. - Continue present medications. - Await pathology results. - Repeat colonoscopy in 10 years for surveillance. Procedure Code(s): --- Professional --- 54785, Colonoscopy, flexible; with biopsy, single or multiple G0500, Moderate sedation services provided by the same physician or other qualified health medicare specialist performing a gastrointestinal endoscopic service that sedation supports, requiring the presence of an independent trained observer to assist in the monitoring of the patient's level of consciousness and physiological status; initial 15 minutes of intra-service time; patient age 5 years or older (additional time may be reported with 82382, as appropriate) Diagnosis Code(s): --- Professional --- K64.8, Other hemorrhoids Z98.890, Other specified postprocedural states K92.1, Melena (includes Hematochezia) CPT copyright 2021 [employer]. All rights reserved. The codes documented in this report are preliminary and upon brewing technician review may be revised to meet current compliance requirements. Christiano Nelson, 05/15/2023 12:51:13 PM Number of Addenda: 0 Note Initiated On: 05/15/2023 11:30 AM Endoscopy Report Procedure Note Christiano Nelson MD - 05/15/2023 Patient Name: Kavita Macias Procedure Date: 05/15/2023 11:30 AM Date of : 1980 Admit Type: Outpatient Age: 43 Gender: Female Note Status: Finalized Attending MD: Christiano Nelson , , Procedure: Colonoscopy Indications: Hematochezia; personal history of SSA; alternating BMs; no first degree family members with colon cancer Providers: Christiano Nelson, Kathryn Snow, RN Referring MD: Mejia Martinez Medicines: Fentanyl 100 micrograms IV, Midazolam 4 mg IV Complications: No immediate complications. Procedure: After I obtained informed consent, the scope was passed under direct vision. Throughout the procedure, the patient's blood pressure, pulse, and oxygen saturations were monitored continuously. The [id number] was introduced through the anus and advanced to the terminal ileum. The colonoscopy was performed without difficulty. The patient tolerated the procedure well. The quality of the bowel preparation was good. The terminal ileum, ileocecal valve, appendiceal orifice, and rectum were photographed. Findings: The perianal and digital rectal examinations were normal. The terminal ileum appeared normal. A post polypectomy scar was found at the hepatic flexure. The scar tissue was healthy in appearance. Biopsies for histology were taken with a cold forceps from the entire colon for evaluation of microscopic colitis. Non-bleeding internal hemorrhoids were found during retroflexion. The hemorrhoids were small. The exam was otherwise without abnormality on direct and retroflexion views. Moderate Sedation: Moderate (conscious) sedation was administered by the nurse and supervised by the endoscopist. The following parameters were monitored: oxygen saturation, heart rate, blood pressure, and response to care. Total physician intraservice time was 16 minutes. Impression: - The examined portion of the ileum was normal. - Post-polypectomy scar at the hepatic flexure. - Non-bleeding internal hemorrhoids. - The examination was otherwise normal on direct and retroflexion views. - Biopsies were taken with a cold forceps from the entire colon for evaluation of microscopic colitis. Recommendation: - Discharge patient to home. - Patient has a contact number available for emergencies. The signs and symptoms of potential delayed complications were discussed with the patient. Return to normal activities tomorrow. Written discharge instructions were provided to the patient. - Resume previous diet. - Continue present medications. - Await pathology results. - Repeat colonoscopy in 10 years for surveillance. Procedure Code(s): --- Professional --- 36647, Colonoscopy, flexible; with biopsy, single or multiple G0500, Moderate sedation services provided by the same physician or other qualified health medicare specialist performing a gastrointestinal endoscopic service that sedation supports, requiring the presence of an independent trained observer to assist in the monitoring of the patient's level of consciousness and physiological status; initial 15 minutes of intra-service time; patient age 5 years or older (additional time may be reported with [address]104, as appropriate) Diagnosis Code(s): --- Professional --- K64.8, Other hemorrhoids Z98.890, Other specified postprocedural states K92.1, Melena (includes Hematochezia) CPT copyright 2021 [employer]. All rights reserved. The codes documented in this report are preliminary and upon brewing technician review may be revised to meet current compliance requirements. Christiano Nelson, 05/15/2023 12:51:13 PM Number of Addenda: 0 Note Initiated On: 05/15/2023 11:30 AM Endoscopy Report Mejia Martinez MD ET GI PROCEDURE ORDERABLES Final Result * Hepatitis C Antibody, with Reflex (10/01/2022 7:59 AM CDT) Hepatitis C Antibody Negative (Non Reactive) Negative (Non Reactive) 10/01/2022 5:17 PM CDT [facility] Comment:Antibodies to HCV no t detected. Does not exclude the possiblity of exposure to HCV. Blood Venipuncture / Unknown 10/01/2022 7:59 AM CDT 10/01/2022 7:59 AM CDT Jacquie Rankin DO LAB_1 Final Result [facility] [address] [place] [address], [facility] * PAP Test (04/04/2020 10:09 AM CRYSTAL ATTACHER) Case Report Pap Case: [id number] Authorizing Provider: Lionel Segal MD Collected: 04/04/2020 1009 Ordering Location: [place] [address] Received: 04/04/2020 1100 Obstetrics/Gynec ology First Screen: PratherGillian cuadra CT (ASCP) Specimen: Pap Test, Routine, Cervix/Endocervix 04/16/2020 1:29 PM CRYSTAL ATTACHER [facility] Pap Specimen Adequacy Satisfactory for evaluation, endocervical/titus sformation zone component absent. 04/16/2020 1:29 PM CRYSTAL ATTACHER [facility] Pap Interpretation Negative for intraepithelial lesion or malignancy (NILM). 04/16/2020 1:29 PM CRYSTAL ATTACHER [facility] Pap Disclaimer The Pap test is a screening test designed to aid in the detection of cervical cancer and its precursor lesions. It is not a diagnostic procedure and should not be used as the sole means of detecting cervical cancer. Both false-positive and false-negative results may occur. 04/16/2020 1:29 PM CRYSTAL ATTACHER [facility] Gross Description The specimen is received in SurePath fixative and properly labeled. 1 Pap-stained SurePath slide is prepared. 04/16/2020 1:29 PM CRYSTAL ATTACHER [facility] Embedded Images 0 1:29 PM CRYSTAL ATTACHER [facility] Other Specimen Type ENTIRE ENDOCERVIX / Unknown 04/04/2020 10:09 AM CRYSTAL ATTACHER 04/04/2020 11:00 AM CRYSTAL ATTACHER Comment:LMP: No LMP recorded . (Menstrual status: Continuous hormonal contraception). Lionel Segal MD LAB PATHOLOGY Final Result [facility] [address] * HIV Antibody (06/07/2008 12:17 PM CRYSTAL ATTACHER) HIV 1/HIV 2 Non Reac Non Reac HP CONVERSION 06/07/2008 12:1 7 PM CRYSTAL ATTACHER Lionel Segal MD LAB_1 Final Result HP CONVERSION from Last 3 Months or Most Recently Relevant to Health Maintenance Insurance [facility] Care Teams Crayon Molding Machine Operator Relationship Specialty Start Date End Date Jacquie Rankin DO [address] [place] [address] PCP - General 04/18/14
--- OUTSIDE RECORDS SUMMARY | 2024-07-09 14:33 | XMS_ITS | Encounter Summary ---
Author Organization [facility] Address [address], [place] [address] Care Team Providers Care Director Oncology Name Role Phone Jacquie Rankin DO Primary Care Provider [phone] Reason for Visit * Reason Comments Rectal Problems Encounter Details Date Type Department Care Team (Late st Contact Info) Description 07/09/2024 Nurse Triage [facility] [address] [place] [address] Jacquie Rankin DO [address] [place] [address] Rectal Problems Social History Tobacco Use Types Packs/Day Years [...] as of this encounter Nursing Notes * Sha Zimmer, RN - 07/09/2024 1:41 PM CST Situation/Background (brief explanation of current symptoms/situation): Spoke to patient. Attests to constipation preceding this call. Calling today with what she thinks may be a hemorrhoid. However,she also attests to a significant protrusion out of the rectum at the present time. Denies trauma, injury, rectal bleeding. Reviewed pertinent medical history (as relates to the call): Yes Reviewed pertinent medications (as relates to the call): NA Reason for Disposition Large mass protruding out of rectum Protocols used: Rectal [id number] TROTYPER HELPER documented in this encounter Plan of Treatment Upcoming Encounters Date Type Department Care Team (Late st Contact Info) Description 07/20/2024 2:15 PM ELECTROTYPER HELPER Appointment [facility] [address] [facility] [address] [place], [place] [address] Shane Pedro Jr., MD [address] [place], [place] [phone] 09/14/2024 11:30 AM CDT Telemedicine [facility] [address] [place] [address] [address] [place], [place] [address] Viktoriya Aviles PA-C [address] [place] [address] 09/22/2024 2:30 PM CDT Appointment [facility] [address] [place] [address] [phone] Cari Duarte MD [address] [facility] [address] [place] [phone] 03/29/2025 3:30 PM ELECTROTYPER HELPER Appointment [facility] Pending sale to [facility] [address] [place] [address] Cari Duarte MD [address] [facility] [address] [place] [phone] documented as of this encounter Visit Diagnoses Not on filedocumented in this encounter Care Teams Director Oncology Relationship Specialty Start Date End Date Jacquie Rankin DO [address] [place] [address] PCP - General 04/18/14 documented as of this encounter
--- OUTSIDE RECORDS SUMMARY | 2024-07-09 14:33 | XMS_ITS | Encounter Summary ---
Author Organization [facility] Address [address] [place] [address] Care Team Providers Care Intern Brand Name Role Phone Jacquie Rankin DO Primary Care Provider [phone] Reason for Visit * Reason Comments Prior Authorization For Medication Encounter Details Date Type Department Care Team (Late st Contact Info) Description 12/28/2023 Telephone [place] [id number] Dermatology [address] [place] [address] Shane Pedro Jr., MD [address] [place] [address] Prior Authorization For Medication Social History Tobacco Use Types Packs/Day Years [...] as of this encounter Nursing Notes * Katarina Robert MA - 02/16/2024 10:32 AM CDT Images from the original note were not included. Botox 200 units every 12 weeks from 12/10/2023 to 05/30/2024 * Jacquie Burnham LPN - 02/10/2024 2:38 PM CDT Called [facility] Utilization Management department ph. and spoke to ocean import representative Maryellen Bearwho states patient benefits for medical Botox injection are as follows: Coverage for Botox: Service is covered at 100%. No co-pay, no coinsurance applies Per ocean import representative, clinic MAY buy and bill/supply medication in-house. Clinic is NOT required to use a contracted specialty pharmacy. Call reference #: [id number] (call ended at 3:[address]) Jacquie Davison LPN 02/10/24 3:01 PM * Jacquie Burnham LPN - 02/10/2024 10:41 AM CDT Images from the original note were not included. Received fax from [facility] with authorization letter for medical Botox. Coverage has been approved for 155 units every 12 weeks, effective 12/10/2023 - 05/30/2024. Sent follow up email to augustina CruzLEDY, inquiring about the 155 units vs the 200 units. Received email reply from Myesha stating I will see if I can get an updated letter. Remember that this is just a formality so you have something in writing. The member should still be able to get services today. Screenshot of email below. Care team, ok to proceed with 200 units Botox for today's visit as planned. Will await new authorization letter and include screenshot before sending to [facility]. * Katarina Robert MA - 02/10/2024 8:17 AM CDT Images from the original note were not included. * Katarina Robert MA - 02/09/2024 4:33 PM CDT Patient called the office today stating she received a letter in the mail stating that the PA has been approved. Scheduled patient with Dr Pedro 02/10/2024 for Botox injections * Jacquie Burnham LPN - 02/03/2024 3:30 PM CDT Received call back from Zhane Hampton, with [facility]. Caller explained that there was miscommunication between teams handling this request, given the recent change effective 12/24/2023, when [employer] tookover managing medical drugs. She further explained that she would have to manually add the request on to the current authorization, as a separate authorization cannot be completed until the current one for Neurology expires on 05/30/2024. In the interim, she will generate a letter stating patient mayreceive medical Botox injections for hyperhidrosis under the current authorization and will have letter faxed to me within 24 hours. Will defer rescheduling until letter is received by the clinic. She asked that I send her an email with the information that needs to be included on the authorizationletter. Test Administrator emailed the following to Myesha at [email or web address] following our phone call: Shahram Phelan, Here is the member information we discussed for the Botox authorization letter. Member name: Kavita Galvez : 1980 Group # [id number] Request is for continuation of therapy (new insurance) of medical botox for axillary hyperhidrosis (J0585 & 57924). ONABOTULINUMTOXINA (BOTOX) 100 UNITS INJECTION: 100 units into the left and right axillae for a total of 200 units every 3 months. Clinic supplied, Buy & Bill Name of drug: ONABOTULINUMTOXINA (BOTOX) 100 UNITS INJECTION ICD-10 code(s): L74.510 JCODE: J0585 CPT Code(s): 93294 Area(s) to be treated: left and right axilla Frequency of injections: every 3 months Total # of units per injection site: 100 units Total # of units per treatment (for all injection sites): 200 units Provider information: Clinician: Shane Pedro JR., M.D., PH.D. Clinic address: [place] [address] Ph. [phone] Fax. [phone] Please let me know if you need any additional information. Thank you, Jacquie Davison LPN [facility] ph. [phone] fax. [phone] * Katarina Robert MA - 02/03/2024 2:23 PM CDT Patient returned call, left message she will cancel her appointment tomorrow with Dr Pedro. Expressed her frustration and would like to be worked back in the schedule as soon as possible * Jacquie Burnham LPN - 02/03/2024 11:46 AM CDT Called and LVM for Myesha at [facility]. Requested return call to ok directly at [phone]. Triage, when Myesha calls back, please transfer call to me at [phone] Jacquie Davison LPN 02/03/24 11:51 AM * Katarina Robert MA - 02/03/2024 9:01 AM CDT Left detailed message for patient to let her know that there is an issue with Botox PA. Asked if she would like to reschedule tomorrow's appointment with Dr Pedro until insurance issue has been resolved * Jacuqie Burnham LPN - 02/02/2024 9:52 AM CDT Care team, please see earlier messages in this encounter. Patient's 02/04/24 Botox appt will likely need to be rescheduled to later date TBD until insurance issues are sorted out. [facility] will not allow me to obtain authorization for medical botox J0585 for hyperhidrosis, because patient has a separate authorization through a different department at for Botox for migraines. I will have to call [facility] again on 02/03/24. Thank you Jacquie Davison LPN 02/02/24 9:54 AM * Nishi Warner RN - 02/01/2024 9:54 AM CDT Received call from Myesha at [facility] stating that they are unable to change any prior auths or add any new auths during their transition. States the renewed auth does not match on diagnosis. Requesting call back to [phone] to discuss. * Jacquie Burnham LPN - 01/27/2024 3:41 PM CDT Called [facility] [place] Provider Services line ph. for update on status of PA. Spoke to ocean import representative Gianni Null, who advised that case is still under review in a pending state. Test Administrator requested that case be escalated, as pt is scheduled on 02/04/24. Red Cap stated she would send emailrequesting urgent case review to the appropriate team. Call reference # [id number] (call ended at 4:22 PM POWER MULE OPERATOR) Jacquie Davison LPN 01/27/24 4:26 PM * Jacquie Burnham LPN - 01/20/2024 1:05 PM CDT Called [employer] [place] Provider Services line ph. Case reference/Working ID # [id number]. Spoke to ocean import representative Donovan Romero, who advised that case is still under view. Was advised to call back on 02/04/24 for an update. Red Cap provided benefits for medical Botox (J0585 & 55080) which are as follows: Coverage for Botox: Patient is responsible for a $20 copay until individual or family [id number] has been met. Once met, coverage is 100% Deductible (calendar year): Individual $0 and family $0 Out of pocket max: $2500 (individual) (not met) $52659 (family) (not met) Per ocean import representative, clinic MAY buy and bill/supply medication in-house. Clinic is NOT required to use a contracted specialty pharmacy. Call reference [id number] (call ended at 1:21 PM) * Jacquie Burnham LPN - 01/13/2024 1:38 PM CDT Images from the original note were not included. Called [employer] [place] ph. for update on status of Medical Botox PA for continuation of therapy for (J0585 & 24591) for axillary hyperhidrosis (Case reference # [id number]). Availity portal did not list a case status. Spoke to ocean import representative Hoda Rangel, who advised that I would need to contact [facility] ph. [phone] who manages drug prior authorization requests under the medical p irvin. Call reference # [id number] (call ended at 2:[address]) Call was transferred to representative Tiffanie with [employer] ph. [phone] who was unable to locate case reference # [id number], as [facility] only started processing medical drug prior authorizations for [facility] 2 weeks ago. However, ocean import representative noted that there is an existing PA on file for J0585 (case reference # [id number]) for medical Botox for migraines that was requested by Neurology. Red Cap stated that [facility] is unable to complete a second PA for J0585 or 63023, even though both are for different conditions, and that I would need to contact [facility] and request that the CPT code 31104, diagnosis, ICD-10 code L74.510 and additional units (200 units every 3 months) be added to the current authorization. Certificate Number: [id number]: Provider: CARI GUPTA Description: CHRONIC MIGRAINE WITHOUT AURA, INTRACTABLE, WITHOUT STATUS MIGRAINOSUS Code: G43.719 Description: MIGRAINE WITHOUT AURA, NOT INTRACTABLE, WITHOUT STATUS MIGRAINOSUS Code: G43.009 Procedure Code 1: J0585 - INJECTION, ONABOTULINUMTOXINA, 1 UNIT Status: APPROVED Quantity: 155 Units Start Date - End Date: 12/03/2023 - 05/30/2024 View of above authorization in the [facility] Availity portal Call reference # [id number] Call was transferred back to [facility] Provider Services line ph. . Spoke to ocean import representative Bhumika Proctor and explained above. Red Cap placed call on hold and discussed with a paper supervisor. Red Cap returned to the call and advised that she was given permission by her supervisorto initiate a new PA request for J0585 for hyperhidrosis of the axilla, separate from [id number] J0585 for migraines. Coverage pending case review. 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 ONABOTULINUMTOXINA (BOTOX) 100 UNITS INJECTION: 100 units into the left and right axillae for atotal of 200 units every 3 months. Clinic supplied, Buy & Bill. Jacquie Davison LPN 01/13/24 3:25 PM * Jacquie Burnham LPN - 12/28/2023 11:36 AM CDT PA for continuation of therapy for medical Botox (J0585 & 47058) for axillary hyperhidrosis wasinitiated via [facility] portal Clinical documentation was included with request. 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 ONABOTULINUMTOXINA (BOTOX) 100 UNITS INJECTION: 100 units into the left and right axillae for atotal of 200 units every 3 months. Clinic supplied, Buy & Bill. * Ophelia El RN - 12/28/2023 8:54 AM CDT Please initiate prior authorization for medical Botox procedure. Pt called, she has new insurance ICD-10 code(s): L74.510 JCODE: J0585 CPT Code(s): 95570 Area(s) to be treated: left and right axilla Frequency of injections: unlear, Q 3 mo? Total # of units per inj site: 100 U Total # of units per tx (for all injection sites): 200 U Patient Weight: 09/08/2023 2:05 PM Last Recorded Weight Weight in pounds 222 lb If weight not recorded within last 6 months, please ask parent/guardian for estimated child weight. Insurance Card on file: yes no Anticipated date of tx: 02/04/24 Note: if insurance card is not on file, call patient to obtain before submitting request. [employer] [place] [id number] # [id number] RX BIN [id number] RX PCN: [facility] documented in this encounter Plan of Treatment Upcoming Encounters Date Type Department Care Team (Late st Contact Info) Description 07/20/2024 2:15 PM POWER MULE OPERATOR Appointment [facility] [address] [facility] [address] [place], [place] [address] Shane Pedro Jr., MD [address] [place], [place] [phone] 09/14/2024 11:30 AM CDT Telemedicine [facility] [address] [place] [address] [address] [place], [place] [phone] Viktoriya Aviles PA-C [address] [place] [phone] 09/22/2024 2:30 PM CDT Appointment Specialty Center [facility] Neurology [address] [place] [address] [place] [address] [place] [address] [address] [place] [phone] 03/29/2025 3:30 PM POWER MULE OPERATOR Appointment Specialty Center 3931 Neurology [address] [facility] [place] [address] Cari Gupta MD [address] [facility] [address] [place] [phone] documented as of this encounter Visit Diagnoses Not on filedocumented in this encounter Care Teams Intern Brand Relationship Specialty Start Date End Date Jacquie Rankin DO [address] [place] [address] PCP - General 04/18/14 documented as of this encounter
--- OUTSIDE RECORDS SUMMARY | 2024-07-09 14:33 | XMS_ITS | Encounter Summary ---
Author Organization [facility] Address [address], [place] [address] Care Team Providers Care Wafer Production Worker Name Role Phone Jacquie Rankin DO Primary Care Provider [phone] Reason for Visit * Reason Comments BOTOX INJECTION * Procedure/Equipment (Routine) - Authorized Specialty Diagnoses / Procedures Referred By Contac t Referred To Contact Diagnoses Intractable chronic migraine without aura and without status migrainosus Cari Duarte MD [address] [place] [phone] Phone: tel: fax: Referral ID Status Reason Start Date Expiration Date V isits Requested Visits Authorized [id number] Authorized 06/03/2024 11/29/2024 3 3 Encounter Details Date Type Department Care Team (Late st Contact Info) Description 06/22/2024 2:30 PM INSPECTOR MECHANICAL Procedure Visit Specialty Center [facility] Neurology [address] [place] [address] [place] [address] [place] [phone] BOTOX INJECTION Social History Tobacco Use Types Packs/Day Years [...] on file documented as of this encounter Progress Notes * Cari Duarte MD - 06/22/2024 2:30 PM CST SUBJECTIVE: 150 units OnabotulinumtoxinA (Vials 100 unit [id number] exp 08/2026, and 50 unit [id number] exp 02/2026)for chronic migraine. Per [employer]er[employer] protocol. Informed written consent is obtained. ABN is signed. Potential complications and need to call for concerns included in counseling. See [employer] List. Had last treatment on 03/08/2024; had last visit 09/08/2023, refer to the note for HPI and exam, today with an interval change she attests to ongoing benefit, prior to starting treatments was experiencing more than 15 headaches per month lasting more than 4 hours for period of more than 3 consecutive months associated with migraine symptoms and related significant disability affecting routine activities of daily living (migraine causing moderate to severe head pain, photophobia, phonophobia, nausea, inability to attend work with severe symptoms, difficulty concentrating), refractory to other standard conventional treatments as detailed in prior clinical notes (topiramate, amitriptyline, beta-blockers or calcium channel blockers declined due to orthostatic hypotension). On treatment with Botox headaches have decreased by more than 50%, from more than 15 migraine headaches per month down to 3-8migraines per month, thus reducing significant disability from migraines and related symptoms when treatment is administered every 3 months. The treatment is to be continued in order to maintain stability in migraine days and to prevent migraines from worsening, increasing in severity and/or frequency, thus medically necessary. OBJECTIVE: 150 units OnabotulinumtoxinA (Botox) is reconstituted with 3 ml preservative free normalsaline with a final concentration of 5 Units per 0.1 ml. 50 units is injected per 30G one half inchdermatologic needle. All areas were prepped with alcohol wipes. All anterior to the ear injections were performed supine while posterior muscles injected in the sitting position. Pause for the accuracy of dosing performed before beginning. MUSCLES: Procerus: 5 units in a single injection. Hadoop Admin: 10 units total, 5 units per site. Frontalis: 15 units total; divided in 4 sites. Temporalis: 40 units total; divided in 8 sites. Occipitalis: 30 units total; divided in 6 sites. Cervical paraspinals: 20 units total; divided in 4 sites. Trapezius: 30 units total; divided in 6 sites. Successful completion of 150 units OnabotulinumtoxinA (Botox) divided into 31 specific injection sites without evidence complication or significant intolerance. ASSESSMENT: Diagnosis: Chronic migraine, intractable. PLAN: Follow-up for next injection series in 12 to 16 weeks based on patient reported needs. ECTOR MECHANICAL documented in this encounter Plan of Treatment Upcoming Encounters Date Type Department Care Team (Late st Contact Info) Description 07/20/2024 2:15 PM INSPECTOR MECHANICAL Appointment [facility] [address] [facility] [address] [place] [address] Shane Pedro Jr., MD [address] [place] [address] 09/14/2024 11:30 AM CDT Telemedicine [facility] [address] [facility] [address] [place] [address] Viktoriya Aviles PA-C [address] [place] [address] 09/22/2024 2:30 PM CDT Appointment Specialty Center [facility] Neurology [address] [place] [address] Cari Duarte MD [address] [facility] [address] [place] [phone] 03/29/2025 3:30 PM INSPECTOR MECHANICAL Appointment Specialty Center 39[address] Neurology [address] [place] [address] Cari Duarte MD [address] [facility] [address] [place] [phone] documented as of this encounter Visit Diagnoses Diagnosis Intractable chronic migraine without aura and without status migrainosus- Primary Chronic migraine without aura, with intractable migraine, so stated, without mention of status migrainosus documented in this encounter Care Teams Wafer Production Worker Relationship Specialty Start Date End Date Jacquie Rankin DO [address] [place] [address] PCP - General 04/18/14 documented as of this encounter
--- OUTSIDE RECORDS SUMMARY | 2024-07-09 14:33 | XMS_ITS | Encounter Summary ---
Author Organization [employer] Address [address] [address] Care Team Providers Care Urban Forester Name Role Phone Jacquie Rankin DO Primary Care Provider [phone] Reason for Referral * Procedure/Equipment (Routine) - Incomplete Specialty Diagnoses / Procedures Referred By Contac t Referred To Contact Procedures MM Mammogram Screening Bilat W 3D Jaime W CAD Jacquie Rankin DO [address] [place] [address] Phone: tel: fax: Referral ID Status Reason Start Date Expiration Date V isits Requested Visits Authorized [id number] Incomplete 06/28/2024 09/27/2025 1 1 AL APPRENTICE Reason for Visit * Procedure/Equipment (Routine) - Incomplete Specialty Diagnoses / Procedures Referred By Contac t Referred To Contact Procedures MM Mammogram Screening Bilat W 3D Jaime W CAD Jacquie Rankin DO [address] [place] [address] Phone: tel: fax: Referral ID Status Reason Start Date Expiration Date V isits Requested Visits Authorized [id number] Incomplete 06/28/2024 09/27/2025 1 1 Encounter Details Date Type Department Care Team (Late Contact Info) Description 06/29/2024 12:30 PM SIGNAL APPRENTICE Ancillary Procedure [facility] [address] [facility] [place] [address] Social History Tobacco Use Types Packs/Day Years [...] on file documented as of this encounter Plan of Treatment Upcoming Encounters Date Type Department Care Team (Late Contact Info) Description 07/20/2024 2:15 PM SIGNAL APPRENTICE Appointment [facility] [address] [facility] [address] [place], [place] [address] Shane Pedro Jr., MD [address] [place], [place] [address] 09/14/2024 11:30 AM CDT [facility] [address] [place] [address] [address] [place], [place] [address] Viktoriya Aviles PA-C [address] [place], [place] [phone] 09/22/2024 2:30 PM CDT Appointment [facility] [address] [place] [address]. [place], [place] [address] Cari Duarte MD [address] [facility] [address] [place] [phone] 03/29/2025 3:30 PM SIGNAL APPRENTICE Appointment [facility] 3931 Neurology [address] [facility] [place] [address] Cari Duarte MD [address] [facility] [address] [place] [phone] documented as of this encounter Procedures Procedure Name Priority Date/Time Associated Diagnosis Comments MM MAMMOGRAM SCREENING BILAT W 3D JAIME W CAD Routine 06/29/2024 12:45 PM SIGNAL APPRENTICE documented in this encounter Results * MM Mammogram Screening Bilat W 3D Jaime W CAD (06/29/2024 12:45 PM SIGNAL APPRENTICE) Anatomical Region Laterality Modality Breast Bilateral Mammography Impressions 06/29/2024 3:34 PM SIGNAL APPRENTICE : ACR BI-RADS Category 1: Negative RECOMMENDATION: Follow Up Imaging in 12 months - Bilateral The results and recommendations of this examination will be communicated to the patient. Narrative 06/29/2024 3:34 PM SIGNAL APPRENTICE MM MAMMOGRAM SCREENING BILAT W 3D JAIME W CAD performed on 06/29/24 FDA Accredited Facility: [place] [address] Compared to: 12/22/2022 MM Mammogram Screening Bilat W 3D Jaime W CAD and 10/03/2021 MM Mammogram Screening Bilat W 3D Jaime W CAD FINDINGS: Bilateral screening mammogram was performed with the assistance of Computer-Aided Detection and breast tomosynthesis. The breasts are heterogeneously dense, which may obscure small masses. There is no radiographic evidence of malignancy. Jacquie Rankin DO RAD ROSARIO Final Result documented in this encounter Visit Diagnoses Not on filedocumented in this encounter Care Teams Urban Forester Relationship Specialty Start Date End Date Jacquie Rankin DO [address] [place] [address] PCP - General 04/18/14 documented as of this encounter
--- NOTE | 2024-07-09 15:09 | ED.GENADULT ---
HPI - General Adult General Chief complaint: Skin/Abscess/Foreign Body Stated complaint: Hemorrhoid or abscess Time Seen by Provider: 07/09/24 14:32 History of Present Illness HPI narrative: This 44-year-old female comes in with significant pain at her anus that started last evening. She states that this occurred after having of somewhat difficult bowel movement. She thinks that she has hemorrhoid vein causing her symptoms. She does not report any blood in the toilet. She did have a colonoscopy less than a couple years ago and a few small polyps removed but everything else looked okay. She was seen in this emergency department for some episodes of blood in the toilet that was deemed to be from diverticulitis. Otherwise she has been in good health. Related Data Home Medications ?Medication ?Instructions ?Recorded ?Confirmed fluoxetine 20 mg capsule 20 mg PO DAILY 01/21/23 07/09/24 norgestimate 0.25 mg-ethinyl 1 tab PO DAILY 01/21/23 07/09/24 estradiol 35 mcg tablet (Estarylla) tirzepatide (weight loss) 5 mg/0.5 mg subcut 07/09/24 mL subcutaneous pen injector (Zepbound) zolmitriptan 5 mg nasal spray 1 spray intranasal PRN 07/09/24 Previous Rx's ?Medication ?Instructions ?Recorded hydrocortisone-pramoxine 1 %-1 % 1 applic VT QID PRN #30 grams 07/09/24 rectal cream (Analpram-HC) Allergies Allergy/AdvReac Type Severity Reaction Status Date / Time No Known Drug Allergies Allergy Verified 07/09/24 14:38 Review of Systems Status of ROS: Reports: 10 or more systems reviewed and unremarkable except as noted in History and below Narrative: Constitutional: No fevers, no weight gain or loss. Eyes: No discharge. No vision changes. HENT: No congestion, no sore throat, no ear pain. Cardiovascular: No chest pain, no palpitations. Respiratory: No shortness of breath, no wheezes, no cough. Gastrointestinal: No abdominal pain, no vomiting, no diarrhea. Genitourinary: No dysuria, no hematuria. Musculoskeletal: Normal range of motion. Skin: No rashes, no pruritis. Neurological: No dizziness, weakness, sensory change, speech change. Endo/Heme/Allergies: No bruising or bleeding. No polydipsia. Pysch: no suicidality, no anxiety, no insomnia. All other systems reviewed and are negative. [facility] Medical History Anxiety ?F41.9 - Anxiety disorder, unspecified (ICD-10) Migraine ?G43.909 - Migraine, unspecified, not intractable, without status migrainosus (ICD-10) Surgical History No significant past surgical history Social History Smoking Status: Never smoker Second hand tobacco smoke exposure: No How often do you have a drink containing alcohol: never How often do you have six or more drinks on one occasion: Never AUDIT-C Alcohol total score: 0 Non-prescribed substance use: denies use Exam Narrative: Exam Narrative: Constitutional: Well-developed, well-nourished, no acute distress. HEENT: Normocephalic, atraumatic. Neck: Normal range of motion. Nontender. Supple. Heart: Intact distal pulses. Lungs: No chest discomfort. No wheezes, rhonchi, or rales. Abdomen: Nontender. Anus: Small external hemorrhoid that does not appear to be thrombosed. No sign of abscess or erythema. No drainage. Back: Normal range of motion. Extremities: Normal range of motion. No injury. Skin: Intact. No rash. Warm. No erythema or pallor. Neurologic: No altered sensation. No weakness. Alert and oriented. Psychiatric: No suicidality. No anxiety or depression. No insomnia. Nursing notes and vitals signs are reviewed. Const: Vital Signs, click to edit/add: Vital Signs - 24 hr 07/09/24 14:33 Temperature 97.9 F Pulse Rate [Pulse Oximeter] 98 Respiratory Rate 16 Blood Pressure [Ri ght Upper Arm] 121/79 Pulse Oximetry 97 Oxygen Delivery Me thod Room Air Course Vital Signs Vital signs: Initial Vital Signs Temperature 97.9 F 07/09/24 14:33 Temperature Source Temporal Artery Scan 07/09/24 14:33 Pulse Rate 98 07/09/24 14:33 Respiratory Rate 16 07/09/24 14:33 Blood Pressure 121/79 07/09/24 14:33 Blood Pressure Mean 93 07/09/24 14:33 Blood Pressure Position Sitting 07/09/24 14:33 Pulse Oximetry 97 07/09/24 14:33 Oxygen Delivery Method Room Air 07/09/24 14:33 Vital Signs Temperature 97.9 F 07/09/24 14:33 Pulse Rate 98 07/09/24 14:33 Respiratory Rate 16 07/09/24 14:33 Blood Pressure 121/79 07/09/24 14:33 Pulse Oximetry 97 07/09/24 14:33 Oxygen Delivery Method Room Air 07/09/24 14:33 Temperature 97.9 F 07/09/24 14:33 Pulse Rate 98 07/09/24 14:33 Respiratory Rate 16 07/09/24 14:33 Blood Pressure 121/79 07/09/24 14:33 Pulse Oximetry 97 07/09/24 14:33 Oxygen Delivery Method Room Air 07/09/24 14:33 Medical Decision Making MDM Narrative Medical decision making narrative: This person has an external hemorrhoid that is causing significant distress for her. It seems otherwise uncomplicated on examination. There is no sign of thrombosis or abscess. I stated to the patient that this is not appearing to be something that would benefit from incision and drainage. I did provide a prescription for Analpram and recommended using qtaa-pdn-vvkydml medicines to keep stool soft. She may get some benefit also from using a cream or ointment like Preparation-H. I advised her to follow-up with surgery clinic if symptoms are persistent or return here if worsening. Discharge Plan Discharge Clinical Impression: Hemorrhoid Patient Disposition: Home, Self-Care Condition: Stable Additional Instructions: Use medication as prescribed and needed. Use olvb-fwh-depfemb medicines also to keep stools soft and regular. Follow-up with surgery clinic as needed or return if worsening. Prescriptions: New hydrocortisone-pramoxine [Analpram-HC] 1-1 % cream 1 applic VT QID PRNQty: 30 2RF No Action norgestimate-ethinyl estradiol [Estarylla] 0.25-35 mg-mcg tablet 1 tab PO DAILY fluoxetine 20 mg capsule 20 mg PO DAILY zolmitriptan 5 mg spray,non-aerosol 1 spray INTRANASAL PRN Patient Comments: [NO ORIGINAL SIG] Zepbound 5 mg/0.5 mL pen injector SUBCUT Patient Comments: [NO ORIGINAL SIG] Follow Up/Referrals: Provider,Not a Local [Primary Care Provider] - Stand Alone Forms: MyHealth Info Instructions
--- OUTSIDE RECORDS SUMMARY | 2024-07-09 15:30 | XMS_ITS | Encounter Summary ---
Author Organization [employer] Address [address], [place] [address] Care Team Providers Care Spring Inspector Name Role Phone Jacquie Rankin DO Primary Care Provider [phone] Reason for Referral * Procedure/Equipment (Routine) - Incomplete Specialty Diagnoses / Procedures Referred By Contac t Referred To Contact Procedures MM Mammogram Screening Bilat W 3D Jaime W CAD Jacquie Rankin DO [address] [place] [address] Phone: tel: fax: Referral ID Status Reason Start Date Expiration Date V isits Requested Visits Authorized [id number] Incomplete 06/28/2024 09/27/2025 1 1 ECTION ADVISOR Reason for Visit * Procedure/Equipment (Routine) - Incomplete Specialty Diagnoses / Procedures Referred By Contac t Referred To Contact Procedures MM Mammogram Screening Bilat W 3D Jaime W CAD Jacquie Rankin DO [address] [place] [place] [address] Phone: tel: fax: Referral ID Status Reason Start Date Expiration Date V isits Requested Visits Authorized [id number] Incomplete 06/28/2024 09/27/2025 1 1 Encounter Details Date Type Department Care Team (Late Contact Info) Description 06/29/2024 12:30 PM COLLECTION ADVISOR Ancillary Procedure [facility] [address] [facility] [place] [address] Social History Tobacco Use Types Packs/Day Years [...] (Late Contact Info) Description 07/20/2024 2:15 PM COLLECTION ADVISOR Appointment [facility] [address] [facility] [address] [place], [place] [address] Shane Pedro Jr., MD [address] [place], [place] [address] 09/14/2024 11:30 AM CDT Telemedicine [facility] [address] [place] [address] [address] [place], [place] [address] Viktoriya Aviles PA-C [address] [place], [place] [address] 09/22/2024 2:30 PM CDT Appointment Specialty Center [address] [place] [address]. [place], [place] [address] Cari Duarte MD [address] [facility] [address] [place] [phone] 03/29/2025 3:30 PM COLLECTION ADVISOR Appointment Specialty Center 3931 Neurology 39[address] [facility] [place] [address] Cari Duarte MD [address] [facility] [address] [place] [phone] documented as of this encounter Procedures Procedure Name Priority Date/Time Associated Diagnosis Comments MM MAMMOGRAM SCREENING BILAT W 3D JAIME W CAD Routine 06/29/2024 12:45 PM COLLECTION ADVISOR documented in this encounter Results * MM Mammogram Screening Bilat W 3D Jaime W CAD (06/29/2024 12:45 PM COLLECTION ADVISOR) Anatomical Region Laterality Modality Breast Bilateral Mammography Impressions 06/29/2024 3:34 PM COLLECTION ADVISOR : ACR BI-RADS Category 1: Negative RECOMMENDATION: Follow Up Imaging in 12 months - Bilateral The results and recommendations of this examination will be communicated to the patient. Narrative 06/29/2024 3:34 PM COLLECTION ADVISOR MM MAMMOGRAM SCREENING BILAT W 3D JAIME W CAD performed on 06/29/24 FDA Accredited Facility: [place] [address] Compared to: 12/22/2022 MM Mammogram Screening Bilat [...] on filedocumented in this encounter Care Teams Spring Inspector Relationship Specialty Start Date End Date Jacquie Rankin DO [address] [place] [address] PCP - General 04/18/14 documented as of this encounter
--- OUTSIDE RECORDS SUMMARY | 2024-07-09 15:30 | XMS_ITS | Encounter Summary ---
Author Organization [facility] Address [address], [place] [address] Care Team Providers Care Retail Sales Consultant Name Role Phone Jacquie Rankin DO Primary Care Provider [phone] Reason for Visit * Reason Comments BOTOX INJECTION * Procedure/Equipment (Routine) - Authorized Specialty Diagnoses / Procedures Referred By Contac t Referred To Contact Diagnoses Intractable chronic migraine without aura and without status migrainosus Cari Duarte MD [address] [place] [phone] Phone: tel: fax: Referral ID Status Reason Start Date Expiration Date V isits Requested Visits Authorized [id number] Authorized 06/03/2024 11/29/2024 3 3 Encounter Details Date Type Department Care Team (Late st Contact Info) Description 06/22/2024 2:30 PM SHEAR GRINDER OPERATOR HELPER Procedure Visit Specialty Center [facility] Neurology [address] [place] [address] [place] [address] [place] [phone] BOTOX INJECTION Social History Tobacco Use Types [...] SUBJECTIVE: 150 units OnabotulinumtoxinA (Vials 100 unit [id number] exp 08/2026, and 50 unit [id number] exp 02/2026)for chronic migraine. Per Allergan protocol. Informed written consent is obtained. ABN is signed. Potential complications and need to call for concerns included in counseling. See Aconex List. Had last treatment on 03/08/2024; had [...] Procerus: 5 units in a single injection. Novelty Twister Operator: 10 units total, 5 units per site. [...] 16 weeks based on patient reported needs. R GRINDER OPERATOR HELPER documented in this encounter Plan of Treatment Upcoming Encounters Date Type Department Care Team (Late st Contact Info) Description 07/20/2024 2:15 PM SHEAR GRINDER OPERATOR HELPER Appointment [facility] [address] [facility] [address] [place] [address] Shane Pedro Jr., MD [address] [place] [address] 09/14/2024 11:30 AM CDT Telemedicine [facility] [address] [facility] [address] [place] [address] Viktoriya Aviles PA-C [address] [place] [address] 09/22/2024 2:30 PM CDT Appointment Special[facility] Neurology [address] [place] [address] Cari Duarte MD [address] [facility] [address] [place] [phone] 03/29/2025 3:30 PM SHEAR GRINDER OPERATOR HELPER Appointment Special[facility] Center 3931 Neurology [address] [place] [address] Cari Duarte MD [address] [facility] [address] [place] [phone] documented as of this encounter Visit Diagnoses Diagnosis Intractable chronic migraine without aura and without status migrainosus- Primary Chronic migraine without aura, with intractable migraine, so stated, without mention of status migrainosus documented in this encounter Care Teams Retail Sales Consultant Relationship Specialty Start Date End Date Jacquie Rankin DO [address] [place] [address] PCP - General 04/18/14 documented as of this encounter
--- OUTSIDE RECORDS SUMMARY | 2024-07-09 15:30 | XMS_ITS | Encounter Summary ---
Author Organization [employer] Address [address] [place] [address] Care Team Providers Care Metal Treater Name Role Phone Jacquie Rankin DO Primary Care Provider [phone] Reason for Visit * Reason Comments Prior Authorization Request Botox questi ons Encounter Details Date Type Department Care Team (Late st Contact Info) Description 06/01/2024 Telephone Specialty Center 3931 Neurology [address] [place], [place] [address] Cari Duarte MD [address] [facility] [address] [place] [phone] Prior Authorization Request (Botox questions) [...] Patient does received Botox injection through her thoracic surgeon for excessive sweating in her armpits (but not on concurrent treatment with another Botulinum toxin product for treatment of her headaches). Patient confirms she is tolerating Botox with minimal to no side effects. GILDER documented in this encounter Plan of Treatment Upcoming Encounters Date Type Department Care Team (Late st Contact Info) Description 07/20/2024 2:15 PM ART GILDER Appointment [facility] [address] [facility] [address] [place] [address] Shane Pedro Jr., MD [address] [place], [place] [address] 09/14/2024 11:30 AM CDT Telemedicine [facility] [address] [facility] [address] [place], [place] [address] Viktoriya Aviles PA-C [address] [place], [place] [address] 09/22/2024 2:30 PM CDT Appointment Specialty Center 3931 Neurology [address] [facility]. [place], [place] [address] Cari Duarte MD [address] [facility] [address] [place] [phone] 03/29/2025 3:30 PM ART GILDER Appointment Specialty Center 3931 Neurology [address] [place], [place] [address] Cari Duarte MD [address] [facility] [address] [place] [phone] documented as of this encounter Visit Diagnoses Not on filedocumented in this encounter Care Teams Metal Treater Relationship Specialty Start Date End Date Jacquie Rankin DO [address] [place] [address] PCP - General 04/18/14 documented as of this encounter
--- OUTSIDE RECORDS SUMMARY | 2024-07-09 15:30 | XMS_ITS | Clinical Summary ---
Author Organization [facility] [facility] Address [place], [place] [address] Care Team Providers Care Carpenter Repairer Name Role Phone Jacquie Rankin Primary Care Provider [phone] Allergies No known active allergies Medications VIT #[id number] ORAL One tablet once a day 01/26/20 [...] as needed 1 0 02/02/20 09 Active [id number] TAB Take 1 tablet by mouth [...] wheezing 18 g 1 9 9:53 AM CORONARY CLINICAL SPECIALIST 07/24/19 19 Active Active Problems Problem Noted [...] on file Legal Sex Female 7:33 AM CORONARY CLINICAL SPECIALIST Gender Identity Not on file Sexual Orientation [...] 8:25 PM 01/26/2009 11:28 PM Care Teams Carpenter Repairer Relationship Specialty Start Date End Date Jacquie Rankin DO [address] [place] [address] PCP - General Family Practice 12/03/21
--- OUTSIDE RECORDS SUMMARY | 2024-07-09 15:30 | XMS_ITS | Encounter Summary ---
Author Organization [employer] Address [address] [place] [address] Care Team Providers Care Ecommerce Marketing Specialist Name Role Phone Jacquie Rankin DO Primary Care Provider [phone] Reason for Visit * Reason Comments Prior Authorization For Medication Encounter Details Date Type Department Care Team (Late st Contact Info) Description 12/28/2023 Telephone [id number] [address] [place] [address] Shane Pedro Jr., MD [address] [place] [address] Prior Authorization For Medication Social [...] LPN - 02/10/2024 2:38 PM CDT Called [facility] Utilization Management department ph. and spoke to denial management representative Maryellen Bearwho states patient benefits for medical Botox injection are as follows: Coverage for Botox: Service is covered at 100%. No co-pay, no coinsurance applies Per denial management representative, clinic MAY buy and bill/supply medication in-house. Clinic is NOT required to use a contracted specialty pharmacy. Call reference #: [id number] (call ended at 3:[address]) Jacquie Davison LPN 02/10/24 3:01 PM * Jacquie Burnham LPN - 02/10/2024 10:41 AM CDT Images from the original note were not included. Received fax from [facility] with authorization letter for medical Botox. Coverage [...] letter and include screenshot before sending to [facility]. * Katarina Robert MA - 02/10/2024 [...] Received call back from Zhane Hampton, with [facility]. Caller explained that there was miscommunication between [...] needs to be included on the authorizationletter. Telecommunications Support emailed the following to Myesha at [email or web address] following our phone call: Shahram Phelan, Here is the member information we discussed for the Botox authorization letter. Member name: Kavita Galvez : 1980 Group # [id number] Request is for continuation of therapy (new insurance) of medical botox for axillary hyperhidrosis (J0585 & 58732). ONABOTULINUMTOXINA (BOTOX) 100 UNITS INJECTION: 100 units into the left and right axillae for a total of 200 units every 3 months. Clinic supplied, Buy & Bill Name of drug: ONABOTULINUMTOXINA (BOTOX) 100 UNITS INJECTION ICD-10 code(s): L74.510 JCODE: J0585 CPT Code(s): 30412 Area(s) to be treated: left and right axilla Frequency of injections: every 3 months Total # of units per injection site: 100 units Total # of units per treatment (for all injection sites): 200 units Provider information: Clinician: Shane Pedro JR., M.D., PH.D. Clinic address: [place] [address] Ph. [phone] Fax. [phone] Please let me know if you need any additional information. Thank you, Jacquie Davison LPN [facility] Derm[facility]ology ph. [phone] fax. [phone] * Katarina Robert MA - 02/03/2024 2:23 PM CDT Patient returned call, left message she will cancel her appointment tomorrow with Dr Pedro. Expressed her frustration and would like to be worked back in the schedule as soon as possible * Jacquie Burnham LPN - 02/03/2024 11:46 AM CDT Called and LVM for Myesha at [facility]. Requested return call to wy directly at [phone]. Triage, when Myesha calls back, please transfer call to me at [phone] Jacquie Davison LPN 02/03/24 11:51 AM * Katarina Robert MA - 02/03/2024 9:01 AM CDT Left detailed message for patient to let her know that there is an issue with Botox PA. Asked if she would like to reschedule tomorrow's appointment with Dr Pedro until insurance issue has been resolved * Jacquie Burnham LPN - 02/02/2024 9:52 AM CDT Care team, please see earlier messages in this encounter. Patient's 02/04/24 Botox appt will likely need to be rescheduled to later date TBD until insurance issues are sorted out. [facility] will not allow me to obtain authorization for medical botox J0585 for hyperhidrosis, because patient has a separate authorization through a different department at for Botox for migraines. I will have to call [facility] again on 02/03/24. Thank you Jacquie Davison LPN 02/02/24 9:54 AM * Nishi Warner RN - 02/01/2024 9:54 AM CDT Received call from Myesha at [facility] stating that they are unable to change any prior auths or add any new auths during their transition. States the renewed auth does not match on diagnosis. Requesting call back to [phone] to discuss. * Jacquie Burnham LPN - 01/27/2024 3:41 PM CDT Called [facility] of [place] Provider Services line ph. for update on status of PA. Spoke to denial management representative Gianni Null, who advised that case is still under review in a pending state. Telecommunications Support requested that case be escalated, as pt is scheduled on 02/04/24. Parts Assembler stated she would send emailrequesting urgent case review to the appropriate team. Call reference # [id number] (call ended at 4:22 PM REPAIRER [employer]ITURE) Jacquie Davison LPN 01/27/24 4:26 PM * Jacquie Burnham LPN - 01/20/2024 1:05 PM CDT Called [employer] [place] Provider Services line ph. Case reference/Working ID # [id number]. Spoke to denial management representative Donovan Romero, who advised that case is still under view. Was advised to call back on 02/04/24 for an update. Parts Assembler provided benefits for medical Botox (J0585 & 39774) which are as follows: Coverage for Botox: Patient is responsible for a $20 copay until individual or family [id number] has been met. Once met, coverage is 100% Deductible (calendar year): Individual $0 and family $0 Out of pocket max: $2500 (individual) (not met) $02403 (family) (not met) Per denial management representative, clinic MAY buy and bill/supply medication in-house. Clinic is NOT required to use a contracted specialty pharmacy. Call reference [id number] (call ended at 1:21 PM) * Jacquie Burnham LPN - 01/13/2024 1:38 PM CDT Images from the original note were not included. Called [employer] [place] ph. for update on status of Medical Botox PA for continuation of therapy for (J0585 & 27149) for axillary hyperhidrosis (Case reference # [id number]). Availity portal did not list a case status. Spoke to denial management representative Hoda Rangel, who advised that I would need to contact [facility] ph. [phone] who manages drug prior authorization requests under the medical p irvin. Call reference # [id number] (call ended at 2:[address]) Call was transferred to representative Tiffanie with [employer] ph. [phone] who was unable to locate case reference # [id number], as [facility] only started processing medical drug prior authorizations for [facility] 2 weeks ago. However, denial management representative noted that there is an existing PA on file for J0585 (case reference # [id number]) for medical Botox for migraines that was requested by Neurology. Parts Assembler stated that [facility] is unable to complete a second PA for J0585 or 64348, even though both are for different conditions, and that I would need to contact [facility] and request that the CPT code 59893, diagnosis, ICD-10 code L74.510 and additional units (200 units every 3 months) be added to the current authorization. Certificate Number: [id number]: Provider: CARI GUPTA Description: CHRONIC MIGRAINE WITHOUT AURA, INTRACTABLE, WITHOUT STATUS MIGRAINOSUS Code: G43.719 Description: MIGRAINE WITHOUT AURA, NOT INTRACTABLE, WITHOUT STATUS MIGRAINOSUS Code: G43.009 Procedure Code 1: J0585 - INJECTION, ONABOTULINUMTOXINA, 1 UNIT Status: APPROVED Quantity: 155 Units Start Date - End Date: 12/03/2023 - 05/30/2024 View of above authorization in the [facility] Availity portal Call reference # [id number] Call was transferred back to [facility] Provider Services line ph. . Spoke to denial management representative Bhumika Proctor and explained above. Parts Assembler placed call on hold and discussed with a shipyard supervisor. Parts Assembler returned to the call and advised that she was given permission by her supervisorto initiate a new PA request for J0585 for hyperhidrosis of the axilla, separate from [id number] J0585 for migraines. Coverage pending case review. 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 ONABOTULINUMTOXINA (BOTOX) 100 UNITS INJECTION: 100 units into the left and right axillae for atotal of 200 units every 3 months. Clinic supplied, Buy & Bill. Jacquie Davison LPN 01/13/24 3:25 PM * Jacquie Burnham LPN - 12/28/2023 11:36 AM CDT PA for continuation of therapy for medical Botox (J0585 & 87244) for axillary hyperhidrosis [facility] Clinical documentation was included with request. Coverage pending review Case reference # [id number] Information included in PA request: Name of [...] medical botox for axillary hyperhidrosis (J0585 & 99090). ONABOTULINUMTOXINA (BOTOX) 100 UNITS INJECTION: 100 units into the left and right axillae for atotal of 200 units every 3 months. Clinic supplied, Buy & Bill. * Ophelia El RN - 12/28/2023 8:54 AM CDT Please initiate prior authorization for medical Botox procedure. Pt called, she has new insurance ICD-10 code(s): L74.510 JCODE: J0585 CPT Code(s): 32710 Area(s) to be treated: left and right [...] before submitting request. [employer] [place] [id number] # [id number] RX BIN [id number] RX PCN: [id number] documented in this encounter Plan of Treatment Upcoming Encounters Date Type Department Care Team (Late st Contact Info) Description 07/20/2024 2:15 PM [employer]PA[employer]ER [employer] Appointment [facility] [address] [place], [place] [address] Shane Pedro Jr., MD [address] [place], [place] [id number] 09/14/2024 11:30 AM CDT Telemedicine [facility] [address] [place] [address] [address] [place], [place] [address] Viktoriya Aviles PA-C [address] [place] [address] 09/22/2024 2:30 PM CDT Appointment [facility] Neurology [address] [place] [address] [id number] [place] [address] [place] [address] [address] [place] [phone] 03/29/2025 3:30 PM REPAIRER [employer]URNITURE Appointment [facility] Neurology [address] [facility] [place] [address] Cari Gupta MD [address] [facility] [address] [place] [phone] documented as of this encounter Visit Diagnoses Not on filedocumented in this encounter Care Teams Ecommerce Marketing Specialist Relationship Specialty Start Date End Date Jacquie Rankin DO [address] [place] [address] PCP - General 04/18/14 documented as of this encounter
--- OUTSIDE RECORDS SUMMARY | 2024-07-09 15:30 | XMS_ITS | Clinical Summary ---
Author Organization [facility] Address [address] [place] [address] Care Team Providers Care Bookmaker'S Clerk Name Role Phone Jacquie Rankin DO Primary Care Provider [phone] Source Comments You are receiving this document as you are listed as the primary care provider,follow-up provider, or the patient has been referred to you for consultation.This is in compliance with the Medicare andProm[facility] Hospitalca[facility] EHR Incentive Program,which states Providers who transition their patient to another setting of careor provider of care or refers their patient to another provider of care shouldprovide summary care record for each transition of care or referral. [facility] Allergies No known active allergies Medications * [...] intramuscularly every 12 weeks. 150 unit Injections [id number] in office by Dr. Duarte for migraine. Vials 100 unit [id number] exp 08/2026, and 50 unit [id number] exp 02/2026. Fridge neuro 1 Active ALPRAZolam (XANAX) 0.25 MG tabletIndication s:Situational anxiety ([facility]) Take 1 Tablet (0.25 mg) by mouth daily as needed for Anxiety. 5 Tablet 024 2024 Discontinued( Erroneous Entry/Duplica te/Other) rizatriptan (MAXALT-SHIRT TRIMMER) 10 MG disintegrating tabletIndication s:Migraine without aura and without status migrainosus, not intractable 1 tablet at onset of typical migraine. May repeat 1 in 2 hours. Max 2 tablets/day. Max 9 days/month. 12 Tablet 7 024 2024 Discontinued( Erroneous Entry/Duplica te/Other) Onabotulinumtoxi nA (BOTOX IJ) Inject 150 Units intramuscularly every 12 weeks. 150 unit Injections [id number] in office by Dr. Duarte for migraine. Vials 100 unit [id number] exp 07/2026, and 50 unit [id number] exp 02/2026. Fridge neuro 1 2024 Discontinued [...] Department Care Team Description 07/09/2024 Nurse Triage [facility] [address] [place] [address] Jacquie Rankin, DO Rectal Problems 06/29/2024 12:30 PM CONSTRUCTION PROJECT ASSISTANT Ancillary Procedure [facility] [address] [place] [address] 06/22/2024 2:30 PM CONSTRUCTION PROJECT ASSISTANT Procedure Visit [facility] [address] [place] [facility] [place] [address] Cari Duarte MD BOTOX INJECTION 06/08/2024 Telephone [facility] [address] [facility], [facility] [address] [place], [place] [id number] Shane Pedro Jr., MD Prior Authorization For Medication (ONABOTULINUMTOXINA (BOTOX) 100 UNITS INJECTION ) 06/01/2024 Telephone [facility] [address] [place] [address] Cari Duarte MD Prior Authorization Request (Botox questions) 05/26/2024 12:20 PM CONSTRUCTION PROJECT ASSISTANT Telemedicine [facility] [address] [place] [address] Faviola Muñiz, QUALITY ASSURANCE ENGINEER, RASPER MACHINE OPERATOR Acute midline low back pain without sciatica (Primary Dx) 05/19/2024 Telephone [facility] [address] [place] [address] Cari Duarte MD Prior Authorization Request 05/11/2024 9:00 AM CONSTRUCTION PROJECT ASSISTANT E-Visit Specialty Center [facility] Neurology [address] [place] [address] Cari Duarte MD Dx: Intractable chronic migraine without aura and without status migrainosus (Primary Dx) 04/12/2024 E-Visit [facility] [address] [place] [address] [address] [place] [address] Viktoriya Aviles PA-C Dx: Obesity (BMI 35.0-39.9 without comorbidity) (C) (Primary Dx) from Last 3 Months Immunizations Immunization Administration Dates Next Due Flu Vac Preserv Free (3+yrs) 03/23/2012,01/31/20,06/07/2008 H1n1 Miv Sanofi 3+ Yr (Injected) 03/30/2009 Influenza (Flucelvax) 02/14/2021 Influenza (Flucelvax), Preserv Free QIV 04/02/20,04/02/2022 Influenza (LAIV), Unspecified 02/22/2018 Influenza IIV4 (Quadrivalent) 0.5mL (05618) 03/25,03/05/2017 Influenza LAIV (Nasal, 2-49 yrs) 04/10/2010 Influenza LAIV3 2-49 years (Flumist) 02/25/2011 Influenza Vaccine Q/LAIV Int ranasal 2-49 yrs ([facility]) 03/09/2014 Influenza, Unspecified Formulation 03/08/2021 [...] Grandfather Maternal Grandmother Paternal Grandfather Paternal Grandmother Shelly Katz Son Alive Social History Tobacco Use [...] CDT Oxygen Saturation 97% 05/15/2023 1:15 PM CONSTRUCTION PROJECT ASSISTANT Inhaled Oxygen Concentration - - Weight 104.8 kg (231 lb) 03/23/2024 8:53 AM CDT Height 167.6 cm (5' 6) 03/23/2024 8:53 AM CDT Body Mass Index 37.28 03/23/2024 8:53 AM CDT Plan of Treatment Upcoming Encounters Date Type Department Care Team (Late st Contact Info) Description 07/20/2024 2:15 PM CONSTRUCTION PROJECT ASSISTANT Appointment [facility] [address] [facility] [address] [place] [address] Shane Pedro Jr., MD [address] [place], [place] [address] 09/14/2024 11:30 AM CDT Telemedicine [facility] [address] [place] [address] [address] [place], [place] [phone] Viktoriya Aviles PA-C [address] [place], [place] [address] 09/22/2024 2:30 PM CDT Appointment [facility] [address] [place] [address] Cari Duarte MD 3931 [facility] [address] [place] [phone] 03/29/2025 3:30 PM CONSTRUCTION PROJECT ASSISTANT Appointment Special[facility] Neurology [address] [place] [address]076 Cari Duarte MD [address] [facility] [address] [place] [phone] Health Maintenance Due Date Last Done Comments [...] JAIME W CAD Routine 06/29/2024 12:45 PM CONSTRUCTION PROJECT ASSISTANT HGB A1C Routine 04/01/2024 7:58 AM CONSTRUCTION PROJECT ASSISTANT Screening for diabetes mellitus ENDOSCOPY, COLON, SCREENING/DIAGNOSTI C Routine 05/15/2023 11:30 AM CONSTRUCTION PROJECT ASSISTANT Blood per rectum HEPATITIS C ANTIBODY, WITH REFLEX Routine 10/01/2022 7:59 AM CDT Need for hepatitis C screening test PAP TEST Routine 04/04/2020 10:09 AM CONSTRUCTION PROJECT ASSISTANT Screening for malignant neoplasm of cervix HIV ANTIBODY Routine 06/07/2008 12:17 PM CONSTRUCTION PROJECT ASSISTANT from Last 3 Months or Most Recently Relevant to Health Maintenance Results * MM Mammogram Screening Bilat W 3D Jaime W CAD (06/29/2024 12:45 PM CONSTRUCTION PROJECT ASSISTANT) Anatomical Region Laterality Modality Breast Bilateral Mammography Impressions 06/29/2024 3:34 PM CONSTRUCTION PROJECT ASSISTANT : ACR BI-RADS Category 1: Negative RECOMMENDATION: Follow Up Imaging in 12 months - Bilateral The results and recommendations of this examination will be communicated to the patient. Narrative 06/29/2024 3:34 PM CONSTRUCTION PROJECT ASSISTANT MM MAMMOGRAM SCREENING BILAT W 3D JAIME W CAD performed on 06/29/24 FDA Accredited Facility: [place] [address] Compared to: 12/22/2022 MM Mammogram Screening Bilat [...] Result * Hgb A1c (04/01/2024 7:58 AM CONSTRUCTION PROJECT ASSISTANT) Hemoglobin A1C 5.4 <=5.6 % 04/01/2024 9:08 PM CONSTRUCTION PROJECT ASSISTANT [facility] Estimated Average Glucose (Calc) 108 < 117 mg/dL 04/01/2024 9:08 PM CONSTRUCTION PROJECT ASSISTANT [facility] Comment:Estimated average gl ucose (eAG) converts A1c into glucose units (mg/dL) and estimates average glucose over the past approximately 3 months. The eAG reference interval (<117 mg/dL) corresponds to an A1c of <5.7%. Blood Venipuncture / Unknown 04/01/2024 7:58 AM CONSTRUCTION PROJECT ASSISTANT 04/01/2024 7:58 AM CONSTRUCTION PROJECT ASSISTANT us Viktoriya Aviles PA-C LAB_1 Final Result Performing Organization Address City/State/[facility] Co de Phone Number [facility] [address] * Endoscopy, colon, diagnostic (05/15/2023 11:30 AM CONSTRUCTION PROJECT ASSISTANT) Anatomical Region Laterality Modality Other 05/15/2023 11:3 0 AM CONSTRUCTION PROJECT ASSISTANT Narrative 05/15/2023 11:30 AM CONSTRUCTION PROJECT ASSISTANT Patient Name: Kavita Macias Procedure Date: 05/15/2023 [...] and oxygen saturations were monitored continuously. The [id number] was introduced through the anus and advanced [...] for surveillance. Procedure Code(s): --- Professional --- 81819, Colonoscopy, flexible; with biopsy, single or multiple G0500, Moderate sedation services provided by the same physician or other qualified health patient care technician performing a gastrointestinal endoscopic service that sedation supports, requiring the presence of an independent trained observer to assist in the monitoring of the patient's level of consciousness and physiological status; initial 15 minutes of intra-service time; patient age 5 years or older (additional time may be reported with 49733, as appropriate) Diagnosis Code(s): --- Professional --- K64.8, Other hemorrhoids Z98.890, Other specified postprocedural states K92.1, Melena (includes Hematochezia) CPT copyright 2021 [employer]. All rights reserved. The codes documented in this report are preliminary and upon bundle tier and labeler review may be revised to meet current [...] and oxygen saturations were monitored continuously. The [id number] was introduced through the anus and advanced [...] for surveillance. Procedure Code(s): --- Professional --- 99542, Colonoscopy, flexible; with biopsy, single or multiple G0500, Moderate sedation services provided by the same physician or other qualified health patient care technician performing a gastrointestinal endoscopic service that sedation supports, requiring the presence of an independent trained observer to assist in the monitoring of the patient's level of consciousness and physiological status; initial 15 minutes of intra-service time; patient age 5 years or older (additional time may be reported with 09492, as appropriate) Diagnosis Code(s): --- Professional --- K64.8, Other hemorrhoids Z98.890, Other specified postprocedural states K92.1, Melena (includes Hematochezia) CPT copyright 2021 [employer]. All rights reserved. The codes documented in this report are preliminary and upon bundle tier and labeler review may be revised to meet current compliance requirements. Christiano Nelson, 05/15/2023 12:51:13 PM Number of Addenda: 0 Note Initiated On: 05/15/2023 11:30 AM Endoscopy Report Mejia Martinez MD ET GI PROCEDURE ORDERABLES Final Result * Hepatitis C Antibody, with Reflex (10/01/2022 7:59 AM CDT) Hepatitis C Antibody Negative (Non Reactive) Negative (Non Reactive) 10/01/2022 5:17 PM CDT [facility] Comment:Antibodies to HCV no t detected. Does not exclude the possiblity of exposure to HCV. Blood Venipuncture / Unknown 10/01/2022 7:59 AM CDT 10/01/2022 7:59 AM CDT Jacquie Rankin DO LAB_1 Final Result [facility] [address] [place] [address], [facility] * PAP Test (04/04/2020 10:09 AM CONSTRUCTION PROJECT ASSISTANT) Case Report Pap Case: [id number] Authorizing Provider: Lionel Segal MD Collected: 04/04/2020 1009 Ordering Location: [place] [address] Received: 04/04/2020 1100 Obstetrics/Gynec ology First Screen: PratherGillian cuadra CT (ASCP) Specimen: Pap Test, Routine, Cervix/Endocervix 04/16/2020 1:29 PM CONSTRUCTION PROJECT ASSISTANT [facility] Pap Specimen Adequacy Satisfactory for evaluation, endocervical/titus sformation zone component absent. 04/16/2020 1:29 PM CONSTRUCTION PROJECT ASSISTANT [facility] Pap Interpretation Negative for intraepithelial lesion or malignancy (NILM). 04/16/2020 1:29 PM CONSTRUCTION PROJECT ASSISTANT [facility] Pap Disclaimer The Pap test is a screening test designed to aid in the detection of cervical cancer and its precursor lesions. It is not a diagnostic procedure and should not be used as the sole means of detecting cervical cancer. Both false-positive and false-negative results may occur. 04/16/2020 1:29 PM CONSTRUCTION PROJECT ASSISTANT [facility] Gross Description The specimen is received in SurePath fixative and properly labeled. 1 Pap-stained SurePath slide is prepared. 04/16/2020 1:29 PM CONSTRUCTION PROJECT ASSISTANT [facility] Embedded Images 0 1:29 PM CONSTRUCTION PROJECT ASSISTANT [facility] Other Specimen Type ENTIRE ENDOCERVIX / Unknown 04/04/2020 10:09 AM CONSTRUCTION PROJECT ASSISTANT 04/04/2020 11:00 AM CONSTRUCTION PROJECT ASSISTANT Comment:LMP: No LMP recorded . (Menstrual status: Continuous hormonal contraception). Lionel Segal MD LAB PATHOLOGY Final Result [facility] [address] * HIV Antibody (06/07/2008 12:17 PM CONSTRUCTION PROJECT ASSISTANT) HIV 1/HIV 2 Non Reac Non Reac HP CONVERSION 06/07/2008 12:1 7 PM CONSTRUCTION PROJECT ASSISTANT Lionel Segal MD LAB_1 Final Result HP CONVERSION from Last 3 Months or Most Recently Relevant to Health Maintenance Insurance [facility] Care Teams Bookmaker'S Clerk Relationship Specialty Start Date End Date Jacquie Raknin DO [address] [place] [address] PCP - General 04/18/14
--- OUTSIDE RECORDS SUMMARY | 2024-07-09 15:30 | XMS_ITS | Encounter Summary ---
Author Organization [facility] Address [address] [place] [address] Care Team Providers Care Veneer Jointer Offbearer Name Role Phone Jacquie Rankin DO Primary Care Provider Reason for Visit * Reason Comments Prior Authorization For Medication ONABO TULINUMTOXINA (BOTOX) 100 UNITS INJECTION Encounter Details Date Type Department Care Team (Late st Contact Info) Description 06/08/2024 Telephone [facility] [address] [facility] [address] [place] [address] Shane Pedro Jr., MD [address] [place] [address] Prior Authorization For Medication (ONABOTULINUMTOXINA [...] AM CST Approval sent to scan doc. RINTENDENT SEED MILL * Jacquie Burnham LPN - 06/13/2024 9:33 AM CST Images from the original note were not included. Received fax from /[employer] of [place] with coverage determination for medical Botox prior authorization. Screenshot of letter below. 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 Coverage dates: 06/09/2024 - 12/06/2024 Case tracking # [id number] Case authorization # [id number] Provider NPI # [id number] BS ID # [id number] Called [facility] Utilization Management department ph. and spoke to authorization representative [facility] patient benefits for medical Botox injection are as follows: Coverage for Botox: Patient is responsible for a $20 co-pay until individual or family [id number] max is met. Deductible does not apply. Once met, coverage is 100% and co-pay no longer applies. Out of pocket max: Individual ($2500) Family ($88641) Per authorization representative, clinic MAY buy and bill/supply medication in-house. Clinic is NOT required to use a contracted specialty pharmacy. Call reference #: [id number] Next steps for care team: Please contact patient and inform coverage has been approved. Next appt: 07/20/2024 Order Botox (clinic supplied) prior to appointment. Copy of approval letter was routed to care team [employer] [place] folder. Please print and forward to Scan Doc. Jacquie Davison LPN 06/13/24 10:26 am RINTENDENT SEED MILL * Jacquie Burnham LPN - 06/09/2024 4:28 PM CST Sorry, I'm not sure why that was routed to you first. I will route encounter back to care team oncecoverage determination letter is received and benefits and coverage has been verified early next week. Thank you! Jacquie Davison LPN 06/09/24 4:30 PM RINTENDENT SEED MILL * Guerda Mcdaniel MA - 06/09/2024 2:31 PM CST Reason for call: Prior authorization Specialty Pharmacy: [facility] Name & Phone Number of Caller: [facility] [phone] Callback Required? Yes Was the patient & pharmacy notified of the approval or denial? NA Case #: [id number] How long is PA approved for? 06/09/24 Other information: Patient has been approved for botox 200 units times 3 total of 600 units for 3 doses. Routing: Please route to patient's care team pool. [employer]INT[employer]ENT SEED M[employer] * Jacquie Burnham LPN - 06/09/2024 10:45 AM CST Call from Luly Romero with [employer]previously known [employer]) third adminstrator for [employer] [place]. Caller had additional questions as part of coverage review for medical Botox. All questions were answered. Coverage pending review. Jacquie Davison LPN 06/09/24 10:54 AM RINTENDENT SEED MILL * Jacquie Burnham LPN - 06/08/2024 9:34 AM CST Images from the original note were not included. 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 ONABOTULINUMTOXINA (BOTOX) 100 UNITS INJECTION: 100 units into the left and right axillae for atotal of 200 units every 3 months. Clinic bret, Codie. PA for continuation of therapy for medical Botox (J0585 & 78318) for axillary hyperhidrosis wasinitiated via [employer] portal (3rd alliance party general administrator for [facility] of [place]). Clinical documentation was included with request. Screenshot of portal submission below. Coverage pending review Case tracking # [id number] Information included in PA request: Name of drug: ONABOTULINUMTOXINA (BOTOX) 100 UNITS INJECTION ICD-10 code(s): 38525 JCODE: J0585 CPT Code(s): L74.510 Area(s) to be treated: left and right axilla Frequency of injections: every 3 months Total # of units per inj site: 100 Total # of units per tx (for all injection sites): 200 Clinic supplied/Codie Davison LPN 06/08/24 9:34 AM RINTENDENT SEED MILL documented in this encounter Plan of Treatment Upcoming Encounters Date Type Department Care Team (Late st Contact Info) Description 07/20/2024 2:15 PM SUPERINTENDENT SEED MILL Appointment [facility] [address] [facility] [address] [place] [address] Shane Pedro Jr., MD [address] [place] [address] 09/14/2024 11:30 AM CDT Telemedicine [facility] [address] [facility] [address] [place], [place] [address] Viktoriya Aviles PA-C [address] [place] [address] 09/22/2024 2:30 PM CDT Appointment [facility] 39[address] Neurology [address] [place] [address] Cari Duarte MD [address] [facility] [address] [place] [phone] 03/29/2025 3:30 PM SUPERINTENDENT SEED MILL Appointment Special[facility]1 Neurology [address] [place] [address] Cari Duarte MD [address] [facility] [address] [place] [phone] documented as of this encounter Visit Diagnoses Not on filedocumented in this encounter Care Teams Veneer Jointer Offbearer Relationship Specialty Start Date End Date Jacquie Rankin DO [address] [place], [place] [address] PCP - General 04/18/14 documented as of this encounter
--- OUTSIDE RECORDS SUMMARY | 2024-07-09 15:30 | XMS_ITS | Encounter Summary ---
Author Organization [facility] Address [address], [place] [address] Care Team Providers Care Police Chief Name Role Phone Jacquie Rankin DO Primary Care Provider [phone] Reason for Visit * Reason Comments Rectal Problems Encounter Details Date Type Department Care Team (Late st Contact Info) Description 07/09/2024 Nurse Triage [facility] [address] [place] [address] Jacquie Rankin DO [address] [place] [address] Rectal Problems Social History Tobacco [...] protruding out of rectum Protocols used: Rectal Kpjuuisg-ZSXBC-YW NG VAMPER documented in this encounter Plan of Treatment Upcoming Encounters Date Type Department Care Team (Late st Contact Info) Description 07/20/2024 2:15 PM LINING VAMPER Appointment [facility] [address] [facility] [address] [place], [place] [address] Shane Pedro Jr., MD [address] [place], [place] [address] 09/14/2024 11:30 AM CDT Telemedicine [facility] [address] [place] [address] [address] [place], [place] [address] Viktoriya Aviles PA-C [address] [place] [address]01[address] 09/22/2024 2:30 PM CDT Appointment [facility] [address] [place] [address] Cari Duarte MD [address] [facility] [address] [place] [phone] 03/29/2025 3:30 PM LINING VAMPER Appointment Special[facility] [place] [address] Cari Duarte MD [address] [place] [address] [facility] [address] [place] [phone] documented as of this encounter Visit Diagnoses Not on filedocumented in this encounter Care Teams Police Chief Relationship Specialty Start Date End Date Jacquie Rankin DO [address] [place] [address] PCP - General 04/18/14 documented as of this encounter
--- OUTSIDE RECORDS SUMMARY | 2024-07-09 15:30 | XMS_ITS | Encounter Summary ---
Author Organization [facility] Address [address] [place] [address] Care Team Providers Care Announcer Name Role Phone Jacquie Rankin DO Primary Care Provider [phone] Encounter Details Date Type Department Care Team (Late st Contact Info) Description 05/26/2024 12:20 PM MAINTENANCE TECH [facility]medicine [facility] [address] [place] [address] Faviola Muñiz, UNEMPLOYMENT EXAMINER, MANAGER [employer] [address] [place], [place] [address] Acute midline low back pain without sciatica [...] Muñiz APRN, CNP - 05/26/2024 12:20 PM MAINTENANCE TECH Follow teaching handouts Take medrol dosepack as directed and inflammation, make sure you have something in your stomach when you take this You may use uogu-pep-nmdpatc acetaminophen as directed on the bottles/packages for [...] spelling, or word errors because of this. TENANCE TECH TENANCE TECH * Attachments The following attachments cannot be sent through Care Everywhere. * Low Back Pain: General Info (Serbian) * EXERCISES FOR BACK PAIN (SOMALI) documented in this encounter Progress Notes * [...] when you take this You may use kfbz-dpm-uhuonrn acetaminophen as directed on the bottles/packages for [...] spelling, or word errors because of this. TENANCE TECH documented in this encounter Plan of Treatment Upcoming Encounters Date Type Department Care Team (Late st Contact Info) Description 07/20/2024 2:15 PM MAINTENANCE TECH [facility]ointment [facility] [address] [facility] [address] [place] [address] Shane Pedro Jr., MD [address] [place], [place] [phone] 09/14/2024 11:30 AM CDT Telemedicine [facility] [address] [facility] [address] [place], [place] [address] Viktoriya Aviles PA-C [address] [place], [place] [address] 09/22/2024 2:30 PM CDT Appointment [facility] [address] [place] [phone] Cari Duarte MD 39[address] [facility] [address] [place] [phone] 03/29/2025 3:30 PM MAINTENANCE TECH Appointment [facility] [address] [place] [phone] Cari Duarte MD [address] [facility] [address] [place] [phone] documented as of this encounter Visit Diagnoses Diagnosis Acute midline low back pain without sciatica- Primary documented in this encounter Care Teams Announcer Relationship Specialty Start Date End Date Jacquie Rankin DO [address] [place] [address] PCP - General 04/18/14 documented as of this encounter
== END 2024-07-09 15:34 | disposition home or self-care (01) ==
LOC: ED 15:29
PROVIDERS: Emergency Provider Emergency Medicine Emergency Medical Services
DX: K64.8 Other hemorrhoids (principal)
CPT/HCPCS: 99283; 99284